=== PATIENT | male | born 1970 | race Caucasian/White ===

== ENCOUNTER → 2018-04-02 | Outpatient (CLI) | payer OTHER ==
[~2018-04-02] MED LIST: ALBIPROI INH; AZIT250 PO; BENTYL20 MG PO; Bactrim Ds Tab1 EACH PO; ESCI10 PO; ESCI20 PO; ESOM20 PO; FAMO20 PO; FAMO40 PO; HYDACE5 PO; HYDMOR4 PO; HYOS.125 SL; KETO10 PO; MARIJUANA; METO10 PO; METR500 PO; OMEP20ER PO; OMEP40CA12 PO; ONDA4 PO; OXYACE5T PO; PANT40 PO; PENVK500 PO; PRED20 PO; PROC10 PO; PROC10ER PO; PROC25S PR; PROM25 PO; PROM25 PR; PROM25S PR; RANI150 PO; RXOXYACE PO; RXPROM25 PO; RXPROM25S PR; RXTRAM50 PO; SERT50 PO; TRAM50 PO; Zofran Odt4 MG PO; [UNRECOGNIZED DRUG - REMARK]
[2018-04-02 12:40] LABS: BASOPHILS ABSOLUTE AUTO 0.05 K/mm3 (0.00-0.23); BASOPHILS PERCENT AUTO 0 % (0-2); EOSINOPHILS PERCENT AUTO 1 % (0-6); Hematocrit 46.4 % (37.0-53.0); Hemoglobin 15.4 g/dL (13.5-17.5); IMMATURE GRAN ABSOLUTE AUTO 0.05 K/mm3 (0.00-0.10); IMMATURE GRAN PERCENT AUTO 0 % (0-1); LYMPHOCYTES ABSOLUTE AUTO 2.87 K/mm3 (0.84-5.20); LYMPHOCYTES PERCENT AUTO 21 % (21-46); MONOCYTES ABSOLUTE AUTO 0.96 K/mm3 (0.16-1.47); MONOCYTES PERCENT AUTO 7 % (4-13); Mean Corpuscular HGB 31.7 pg (26.0-34.0); Mean Corpuscular HGB Conc 33.2 g/dL (31.5-36.5); Mean Corpuscular Volume 96 fL (80-100); Mean Platelet Volume 10.3 fL (9.1-12.4); NEUTROPHILS ABSOLUTE AUTO 9.87 K/mm3 (1.96-9.15); NEUTROPHILS PERCENT AUTO 71 % (41-73); Platelet Count 327 K/mm3 (150-400); RDW Coefficient Variation 13.6 % (11.7-14.2); RDW Standard Deviation 47.9 fL (35.1-46.3); Red Blood Cell Count 4.86 M/mm3 (4.30-5.90)
[2018-04-02 12:50] LABS: Alanine Aminotransfer (ALT/SGP 32 U/L (12-78); Albumin, Blood 4.3 g/dL (3.4-5.0); Albumin/Globulin Ratio 1.2 (0.8-1.8); Alk Phos 75 U/L (40-126); Anion Gap 10 mmol/L (6-16); Aspartate Aminotrans (AST/SGOT 22 U/L (12-37); Bilirubin, Total 0.3 mg/dL (0.1-1.0); Blood Urea Nitrogen 19 mg/dL (8-24); Bun/Creatinine Ratio 16.4 (12.0-20.0); CO2, Blood 26 mmol/L (21-32); Calcium, Blood 8.8 mg/dL (8.5-10.1); Chloride, Blood 103 mmol/L (98-108); Creatinine, Blood 1.16 mg/dL (0.60-1.20); Globulin, Blood 3.5 g/dL (2.2-4.0); Glomerular Filtration Rate >60 (60-); Glucose, Blood 102 mg/dL (70-99); Potassium, Blood 4.3 mmol/L (3.5-5.5); Sodium, Blood 139 mmol/L (136-145); Total Protein, Blood 7.8 g/dL (6.4-8.2)
== END | disposition home or self-care (01) ==
LOC: LAB SHORT 12:35 → LAB EV 12:35
PROVIDERS: Physician Assistant
DX: M79.671 Pain in right foot (principal)
CPT/HCPCS: 80053; 84550; 85025

== ENCOUNTER → 2018-04-09 | Outpatient (CLI) | payer OTHER ==
[2018-04-09 09:57] LABS: BASOPHILS ABSOLUTE AUTO 0.04 K/mm3 (0.00-0.23); BASOPHILS PERCENT AUTO 0 % (0-2); EOSINOPHILS ABSOLUTE AUTO 0.12 K/mm3 (0.00-0.68); EOSINOPHILS PERCENT AUTO 1 % (0-6); Hematocrit 51.6 % (37.0-53.0); Hemoglobin 17.1 g/dL (13.5-17.5); IMMATURE GRAN ABSOLUTE AUTO 0.06 K/mm3 (0.00-0.10); IMMATURE GRAN PERCENT AUTO 1 % (0-1); LYMPHOCYTES ABSOLUTE AUTO 2.86 K/mm3 (0.84-5.20); LYMPHOCYTES PERCENT AUTO 24 % (21-46); MONOCYTES ABSOLUTE AUTO 0.98 K/mm3 (0.16-1.47); MONOCYTES PERCENT AUTO 8 % (4-13); Mean Corpuscular HGB 31.5 pg (26.0-34.0); Mean Corpuscular HGB Conc 33.1 g/dL (31.5-36.5); Mean Corpuscular Volume 95 fL (80-100); NEUTROPHILS ABSOLUTE AUTO 7.98 K/mm3 (1.96-9.15); NEUTROPHILS PERCENT AUTO 66 % (41-73); Platelet Count 358 K/mm3 (150-400); RDW Coefficient Variation 13.7 % (11.7-14.2); RDW Standard Deviation 48.1 fL (35.1-46.3); Red Blood Cell Count 5.42 M/mm3 (4.30-5.90); White Blood Cell Count 12.04 K/mm3 (4.00-11.30)
[2018-04-09 09:58] LABS: Anion Gap 11 mmol/L (6-16); Blood Urea Nitrogen 21 mg/dL (8-24); Bun/Creatinine Ratio 19.8 (12.0-20.0); CO2, Blood 27 mmol/L (21-32); Calcium, Blood 9.5 mg/dL (8.5-10.1); Chloride, Blood 99 mmol/L (98-108); Creatinine, Blood 1.06 mg/dL (0.60-1.20); Glomerular Filtration Rate >60 (60-); Glucose, Blood 89 mg/dL (70-99); Potassium, Blood 4.4 mmol/L (3.5-5.5); Sodium, Blood 137 mmol/L (136-145)
== END ==
LOC: LAB SHORT 09:48 → LAB EV 09:48
PROVIDERS: Nurse Practitioner
DX: R05 Cough (principal)
CPT/HCPCS: 80048; 85025

== ENCOUNTER 2018-08-01 04:24 | Emergency (ER) | payer OTHER ==
[~2018-08-01] VITALS: Ht 182.9 cm; Wt 63.5 kg
[2018-08-01] MEDS ORDERED: COMBIVENT RESPIM4 GM (04:34)
[2018-08-01] MEDS ORDERED: Prednisone20 MG PO (05:02)
== END 2018-08-01 05:32 | disposition home or self-care (01) ==
LOC: ER 04:24
DX: J02.9 Acute pharyngitis, unspecified (principal); Z79.52 Long term (current) use of systemic steroids; Z79.899 Other long term (current) drug therapy; K21.9 Gastro-esophageal reflux disease without esophagitis; F17.210 Nicotine dependence, cigarettes, uncomplicated; Z90.49 Acquired absence of other specified parts of digestive tract
CPT/HCPCS: 71046; 87081; 87430; 96372; 99284-25; J1885

== ENCOUNTER 2018-08-16 07:00 | Emergency (ER) | payer OTHER ==
[~2018-08-16] VITALS: Ht 182.9 cm; Wt 60.3 kg
[~2018-08-16 07:00] MED LIST changes: +COMBIVENT RESPIM4 GM; +Prednisone20 MG PO
[2018-08-16] MEDS ORDERED: COMBIVENT RESPIM4 GM INH (08:22)
[2018-08-16] MEDS ORDERED: Prednisone20 MG PO (08:22)
[2018-08-16] MEDS ORDERED: BENZ100A PO (08:22)
[2018-08-16] MEDS ORDERED: Zithromax250 MG PO (08:22)
== END 2018-08-16 08:50 | disposition home or self-care (01) ==
LOC: ER 07:00
DX: J44.1 Chronic obstructive pulmonary disease with (acute) exacerbation (principal); F17.210 Nicotine dependence, cigarettes, uncomplicated
CPT/HCPCS: 71046; 94640; 99284-25

== ENCOUNTER 2019-03-18 11:18 | Observation (INO) | payer OTHER ==
[~2019-03-18] VITALS: Ht 182.9 cm; Wt 63.5 kg
[~2019-03-18 11:18] MED LIST changes: +BENZ100A PO; +COMBIVENT RESPIM4 GM INH; +Zithromax250 MG PO
[2019-03-18 11:49] LABS: BASOPHILS ABSOLUTE AUTO 0.03 K/mm3 (0.00-0.23); BASOPHILS PERCENT AUTO 0 % (0-2); EOSINOPHILS ABSOLUTE AUTO 0.01 K/mm3 (0.00-0.68); EOSINOPHILS PERCENT AUTO 0 % (0-6); Hematocrit 44.7 % (37.0-53.0); Hemoglobin 15.1 g/dL (13.5-17.5); IMMATURE GRAN ABSOLUTE AUTO 0.07 K/mm3 (0.00-0.10); IMMATURE GRAN PERCENT AUTO 1 % (0-1); LYMPHOCYTES ABSOLUTE AUTO 1.44 K/mm3 (0.84-5.20); LYMPHOCYTES PERCENT AUTO 10 % (21-46); MONOCYTES ABSOLUTE AUTO 0.63 K/mm3 (0.16-1.47); MONOCYTES PERCENT AUTO 5 % (4-13); Mean Corpuscular HGB 31.7 pg (26.0-34.0); Mean Corpuscular HGB Conc 33.8 g/dL (31.5-36.5); Mean Corpuscular Volume 94 fL (80-100); Mean Platelet Volume 9.3 fL (9.1-12.4); NEUTROPHILS ABSOLUTE AUTO 11.72 K/mm3 (1.96-9.15); NEUTROPHILS PERCENT AUTO 84 % (41-73); Platelet Count 334 K/mm3 (150-400); RDW Standard Deviation 48.4 fL (35.1-46.3); Red Blood Cell Count 4.77 M/mm3 (4.30-5.90)
[2019-03-18 12:06] LABS: Alanine Aminotransfer (ALT/SGP 23 U/L (12-78); Albumin, Blood 3.8 g/dL (3.4-5.0); Albumin/Globulin Ratio 1.2 (0.8-1.8); Alk Phos 63 U/L (50-136); Anion Gap 7 mmol/L (6-16); Aspartate Aminotrans (AST/SGOT 13 U/L (12-37); Bilirubin, Total 0.5 mg/dL (0.1-1.0); Blood Urea Nitrogen 21 mg/dL (8-24); Bun/Creatinine Ratio 23.5 (12.0-20.0); CO2, Blood 24 mmol/L (21-32); Calcium, Blood 8.9 mg/dL (8.5-10.1); Chloride, Blood 108 mmol/L (98-108); Creatinine, Blood 0.89 mg/dL (0.60-1.20); Globulin, Blood 3.3 g/dL (2.2-4.0); Glomerular Filtration Rate >60 (60-); Glucose, Blood 119 mg/dL (70-99); Potassium, Blood 4.5 mmol/L (3.5-5.5); Sodium, Blood 139 mmol/L (136-145); Total Protein, Blood 7.1 g/dL (6.4-8.2)
[2019-03-18 14:04] LABS: Source, Urine Voided
[2019-03-18 14:14] LABS: Bilirubin, Urine Neg (Neg); Blood, Urine 1+ (Neg); Glucose Qualitative, Urine Neg (Neg); Ketones, Urine 2+ (Neg); Leukocyte Esterase, Urine Neg (Neg); Nitrite, Urine Neg (Neg); Protein, Urine 1+ (Neg); Urobilinogen, Urine NORM (Normal); pH, Urine 6.5 (5.0-8.0)
[2019-03-18 14:25] LABS: U Amphetamine Screen Not Detected; U Barbituate Screen Not Detected; U Benzodiazapine Screen Not Detected; U Buprenorphine Screen Not Detected; U Cannabinoids Screen DETECTED; U Cocaine Screen Not Detected; U Methadone Screen Not Detected; U Methamphetamine Screen Not Detected; U Opiates Screen Not Detected; U Oxycodone Screen Not Detected; U Phencyclidine Screen Not Detected; U Propoxyphene Screen Not Detected
[2019-03-18 14:29] LABS: Appearance, Urine Clear (Clear); Color, Urine Yellow (P-Yellow)
[2019-03-18 14:46] LABS: Bacteria Rare /hpf; Red Blood Cells, Urine 0-2 /hpf (0-2); Squamous Epithelial Cells Rare /hpf (Few); White Blood Cells, Urine 0-2 /hpf (0-5)
[2019-03-18] MEDS ORDERED: Ventolin/Prove6.7 GM INH (16:26)
--- NOTE | 2019-03-18 18:43 | NUR ---
PT PLEASANT SINCE ADMIT AT 1730. STAATES IS HOMELESS. PRESENTS WEAK AND MALNOURISHED. 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 NOT WORKING NOW. STATES IS MARIJUANNA USER AND TOBACCO USER. STATES RECEIVES NO ASSISTANCE. SLEEPING MUCH SINCE ARRIVAL. IS [place]. BED IN LOW POSITIOIN, CALL LITE IN REACH, CALLS APPROP
--- NOTE | 2019-03-18 18:50 | NUR ---
DR NOTIFIED B/P 160'S, H/R 48. NO NEW ORDERS
[2019-03-19 05:01] LABS: BASOPHILS ABSOLUTE AUTO 0.03 K/mm3 (0.00-0.23); BASOPHILS PERCENT AUTO 0 % (0-2); EOSINOPHILS PERCENT AUTO 0 % (0-6); Hematocrit 44.9 % (37.0-53.0); Hemoglobin 14.5 g/dL (13.5-17.5); IMMATURE GRAN ABSOLUTE AUTO 0.08 K/mm3 (0.00-0.10); IMMATURE GRAN PERCENT AUTO 0 % (0-1); LYMPHOCYTES ABSOLUTE AUTO 1.79 K/mm3 (0.84-5.20); LYMPHOCYTES PERCENT AUTO 9 % (21-46); MONOCYTES ABSOLUTE AUTO 1.59 K/mm3 (0.16-1.47); MONOCYTES PERCENT AUTO 8 % (4-13); Mean Corpuscular HGB 30.5 pg (26.0-34.0); Mean Corpuscular HGB Conc 32.3 g/dL (31.5-36.5); Mean Corpuscular Volume 95 fL (80-100); Mean Platelet Volume 10.2 fL (9.1-12.4); NEUTROPHILS ABSOLUTE AUTO 16.34 K/mm3 (1.96-9.15); NEUTROPHILS PERCENT AUTO 82 % (41-73); Platelet Count 307 K/mm3 (150-400); RDW Coefficient Variation 14.2 % (11.7-14.2); RDW Standard Deviation 49.7 fL (35.1-46.3); Red Blood Cell Count 4.75 M/mm3 (4.30-5.90); White Blood Cell Count 19.83 K/mm3 (4.00-11.30)
[2019-03-19 05:53] LABS: Alanine Aminotransfer (ALT/SGP 23 U/L (12-78); Albumin/Globulin Ratio 1.1 (0.8-1.8); Alk Phos 61 U/L (50-136); Anion Gap 8 mmol/L (6-16); Aspartate Aminotrans (AST/SGOT 15 U/L (12-37); Bilirubin, Total 0.7 mg/dL (0.1-1.0); Blood Urea Nitrogen 19 mg/dL (8-24); Bun/Creatinine Ratio 22.1 (12.0-20.0); CO2, Blood 26 mmol/L (21-32); Calcium, Blood 8.8 mg/dL (8.5-10.1); Chloride, Blood 103 mmol/L (98-108); Creatinine, Blood 0.86 mg/dL (0.60-1.20); Globulin, Blood 3.5 g/dL (2.2-4.0); Glomerular Filtration Rate >60 (60-); Glucose, Blood 114 mg/dL (70-99); Potassium, Blood 4.2 mmol/L (3.5-5.5); Sodium, Blood 137 mmol/L (136-145); Total Protein, Blood 7.5 g/dL (6.4-8.2)
--- NOTE | 2019-03-19 06:51 | NUR ---
49 year old MAle appears olderthan actual age. PT co nausea, abd cramps and acute abd pain x 1 . Medicated with toradol, compazine, bentyl with helpful effect. In IV fluid, NPO. Very [place] but able to communicate.
[2019-03-19] MEDS ORDERED: Nicoderm Cq1 EAC1 TOP (11:46)
[2019-03-19] MEDS ORDERED: COMPAZINE10 MG PO (11:47)
--- NOTE | 2019-03-19 12:34 | NUR ---
DISCHARGE DISCHARGE MEDICATIONS AND INSTRUCTIONS EXLAINED TO PATIENT. PATIENT STATED UNDERSTANDING. FOLLOW UP APPOINTMENT TO BE MADE BY CARE MANAGEMENT, PATIENT TO BE CALLED AT HOME. IV REMOVED WITHOUT DIFFICULTY. BELONGINGS WITH PATIENT. PATIENT TRANSFERED TO [facility] VIA WHEELCHAIR.
[2019-03-20 08:06] LABS: COMPLEMENT C3, SERUM 87 mg/dL (82-167); COMPLEMENT C4, SERUM 23 mg/dL (14-44)
[2019-03-23 13:07] LABS: ANTI-DSDNA ANTIBODIES 2 IU/mL (0-9); RNP ANTIBODIES <0.2 AI (0.0-0.9); SJOGREN'S ANTI-SS-A <0.2 AI (0.0-0.9); SJOGREN'S ANTI-SS-B <0.2 AI (0.0-0.9); SMITH ANTIBODIES <0.2 AI (0.0-0.9)
== END 2019-03-19 12:33 | disposition home or self-care (01) ==
LOC: ER 11:18 → MEDS 11:19 → ENPENDDIS 03-19 10:58 → MEDS 03-19 12:33
PROVIDERS: Emergency Medicine; ADMIT Internal Medicine
DX: F12.988 Cannabis use, unspecified with other cannabis-induced disorder (principal); F12.10 Cannabis abuse, uncomplicated; F17.210 Nicotine dependence, cigarettes, uncomplicated; E43 Unspecified severe protein-calorie malnutrition; J44.9 Chronic obstructive pulmonary disease, unspecified; K00.7 Teething syndrome; K21.9 Gastro-esophageal reflux disease without esophagitis
CPT/HCPCS: 36415; 71046; 74018; 74177; 80053; 81001; 83690; 84443; 85025; 85651; 86160; 86225; 86235; 93005; 93010; 94640; 94760; 96361; 96372; 96374-59; 96376; 99285-25; G0378; J0780; J1650; J1885; J7120; Q9967

== ENCOUNTER 2019-03-20 09:35 | Emergency (ER) | payer OTHER ==
[~2019-03-20] VITALS: Ht 182.9 cm; Wt 61.2 kg
[~2019-03-20 09:35] MED LIST changes: +COMPAZINE10 MG PO; +Nicoderm Cq1 EAC1 TOP; +Ventolin/Prove6.7 GM INH
[2019-03-20 10:45] LABS: Calcium, Ionized (POC) 1.04 mmol/L (1.10-1.46); Chloride (POC) 104 mmol/L (98-108); Creatinine (POC) 0.9 mg/dL (0.8-1.3); Glucose (ISTAT POC) 112 mg/dL (70-99); Hemoglobin (POC) 14.3 g/dL (13.5-17.5); Potassium (POC) 3.8 mmol/L (3.5-5.5); Sodium (POC) 137 mmol/L (135-148); Total CO2 (POC) 25 mmol/L (21-32)
== END 2019-03-20 11:07 | disposition home or self-care (01) ==
LOC: ER 09:35
PROVIDERS: Emergency Medicine
DX: R10.9 Unspecified abdominal pain (principal); F17.210 Nicotine dependence, cigarettes, uncomplicated; Z79.899 Other long term (current) drug therapy
CPT/HCPCS: 36415; 80047; 85014; 96374; 99283-25; J0780

== ENCOUNTER 2020-07-15 19:50 | Emergency (ER) | payer OTHER ==
[~2020-07-15] VITALS: Ht 180.3 cm; Wt 65.8 kg
[2020-07-15] MEDS ORDERED: CEPH500 PO (21:32)
== END 2020-07-15 21:55 | disposition home or self-care (01) ==
LOC: ER 19:50
DX: L02.416 Cutaneous abscess of left lower limb (principal); L03.116 Cellulitis of left lower limb; S80.02XA Contusion of left knee, initial encounter; F17.210 Nicotine dependence, cigarettes, uncomplicated; V19.9XXA Pedal cyclist (driver) (passenger) injured in unspecified traffic accident, initial encounter
CPT/HCPCS: 10160; 96372-59; 99283-25; J1885

== ENCOUNTER 2020-08-12 01:41 | Emergency (ER) | payer OTHER ==
[~2020-08-12] VITALS: Ht 182.9 cm; Wt 65.8 kg
[~2020-08-12 01:41] MED LIST changes: +CEPH500 PO
[2020-08-12] MEDS ORDERED: Cleocin HCl300 MG PO (01:50)
== END 2020-08-12 01:59 | disposition home or self-care (01) ==
LOC: ER 01:41
DX: L03.012 Cellulitis of left finger (principal); F17.200 Nicotine dependence, unspecified, uncomplicated
CPT/HCPCS: 99282; A9270

== ENCOUNTER 2020-09-05 20:57 | Inpatient (IN) | payer OTHER ==
[~2020-09-05] VITALS: Ht 182.9 cm; Wt 61.5 kg
[~2020-09-05 20:57] MED LIST changes: +Cleocin HCl300 MG PO
[2020-09-05 22:12] LABS: BASOPHILS ABSOLUTE AUTO 0.07 K/mm3 (0.00-0.23); BASOPHILS PERCENT AUTO 0 % (0-2); EOSINOPHILS ABSOLUTE AUTO 0.09 K/mm3 (0.00-0.68); EOSINOPHILS PERCENT AUTO 0 % (0-6); Hematocrit 35.2 % (37.0-53.0); Hemoglobin 11.2 g/dL (13.5-17.5); IMMATURE GRAN ABSOLUTE AUTO 0.16 K/mm3 (0.00-0.10); IMMATURE GRAN PERCENT AUTO 1 % (0-1); LYMPHOCYTES ABSOLUTE AUTO 1.76 K/mm3 (0.84-5.20); LYMPHOCYTES PERCENT AUTO 7 % (21-46); MONOCYTES ABSOLUTE AUTO 2.38 K/mm3 (0.16-1.47); MONOCYTES PERCENT AUTO 10 % (4-13); Mean Corpuscular HGB 30.1 pg (26.0-34.0); Mean Corpuscular HGB Conc 31.8 g/dL (31.5-36.5); Mean Corpuscular Volume 95 fL (80-100); Mean Platelet Volume 9.5 fL (9.1-12.4); NEUTROPHILS ABSOLUTE AUTO 19.44 K/mm3 (1.96-9.15); NEUTROPHILS PERCENT AUTO 81 % (41-73); Platelet Count 375 K/mm3 (150-400); RDW Coefficient Variation 13.8 % (11.7-14.2); RDW Standard Deviation 47.8 fL (35.1-46.3); Red Blood Cell Count 3.72 M/mm3 (4.30-5.90)
[2020-09-05 23:04] LABS: Alanine Aminotransfer (ALT/SGP 33 U/L (12-78); Albumin, Blood 2.9 g/dL (3.4-5.0); Albumin/Globulin Ratio 0.8 (0.8-1.8); Alk Phos 122 U/L (50-136); Anion Gap 8 mmol/L (6-16); Aspartate Aminotrans (AST/SGOT 33 U/L (12-37); Bilirubin, Total 0.3 mg/dL (0.1-1.0); Blood Urea Nitrogen 28 mg/dL (8-24); Bun/Creatinine Ratio 27.2 (12.0-20.0); CO2, Blood 24 mmol/L (21-32); Calcium, Blood 8.1 mg/dL (8.5-10.1); Chloride, Blood 105 mmol/L (98-108); Creatinine, Blood 1.03 mg/dL (0.60-1.20); Globulin, Blood 3.7 g/dL (2.2-4.0); Glomerular Filtration Rate >60 (60-); Glucose, Blood 126 mg/dL (70-99); Potassium, Blood 4.3 mmol/L (3.5-5.5); Sodium, Blood 137 mmol/L (136-145); Total Protein, Blood 6.6 g/dL (6.4-8.2)
[2020-09-06 01:06] LABS: Influenza A, PCR NEGATIVE (NEGATIVE); Influenza B, PCR NEGATIVE (NEGATIVE); Resp Syncytial Virus, PCR NEGATIVE (NEGATIVE); SARS-Cov-2 (COVID-19) PCR, MMC NEGATIVE (NEGATIVE)
--- NOTE | 2020-09-06 06:52 | NUR ---
SHIFT SUMMARY PT WAS A NEW ADMIT DURING THE NIGHT, ARRIVING ON THE FLOOR AT 0150. PT WAS VERY LETHARGIC AND CONFUSED ON ADMIT, ABLE TO ANSWER YES OR NO QUESTIONS OR MOANING BUT VERY QUICKLY FALLING BACK ASLEEP. THE BED ALARM WAS TURNED ON AFTER PT PULLED OUT HIS IV GOING TO THE BATHROOM. PT RECEIVING LR @ 125 ML/HR. HE WAS MEDICATED FOR A MILD FEVER AT 100.3 WITH PRN TYLENOL. NO C/O PAIN, NAUSEA OR SOB. VITAL SIGNS STABLE. NO OTHER ACUTE CHANGES IN PT CONDITION NOTED. WILL CONTINUE TO MONITOR AND TREAT PER EMAR UNTIL HAND OFF TO DAY SHIFT RN.
[2020-09-06 07:50] LABS: BASOPHILS ABSOLUTE AUTO 0.06 K/mm3 (0.00-0.23); BASOPHILS PERCENT AUTO 0 % (0-2); EOSINOPHILS ABSOLUTE AUTO 0.22 K/mm3 (0.00-0.68); EOSINOPHILS PERCENT AUTO 1 % (0-6); Hematocrit 37.6 % (37.0-53.0); Hemoglobin 11.9 g/dL (13.5-17.5); IMMATURE GRAN PERCENT AUTO 1 % (0-1); LYMPHOCYTES PERCENT AUTO 11 % (21-46); MONOCYTES ABSOLUTE AUTO 1.68 K/mm3 (0.16-1.47); MONOCYTES PERCENT AUTO 9 % (4-13); Mean Corpuscular HGB Conc 31.6 g/dL (31.5-36.5); Mean Corpuscular Volume 95 fL (80-100); Mean Platelet Volume 9.3 fL (9.1-12.4); NEUTROPHILS ABSOLUTE AUTO 15.17 K/mm3 (1.96-9.15); NEUTROPHILS PERCENT AUTO 79 % (41-73); Platelet Count 387 K/mm3 (150-400); RDW Coefficient Variation 13.7 % (11.7-14.2); RDW Standard Deviation 47.8 fL (35.1-46.3); Red Blood Cell Count 3.97 M/mm3 (4.30-5.90); White Blood Cell Count 19.33 K/mm3 (4.00-11.30)
[2020-09-06 08:03] LABS: Anion Gap 3 mmol/L (6-16); Blood Urea Nitrogen 18 mg/dL (8-24); Bun/Creatinine Ratio 19.9 (12.0-20.0); CO2, Blood 30 mmol/L (21-32); Calcium, Blood 8.5 mg/dL (8.5-10.1); Chloride, Blood 105 mmol/L (98-108); Creatinine, Blood 0.91 mg/dL (0.60-1.20); Glomerular Filtration Rate >60 (60-); Glucose, Blood 95 mg/dL (70-99); Sodium, Blood 138 mmol/L (136-145)
--- NOTE | 2020-09-06 17:37 | NUR ---
SHIFT SUMMARY PATIENT ALERT AND ORIENTED, DROWSY THROUGHOUT THIS SHIFT. PATIENT SLEPT THROUGH MOST OF THIS SHIFT. PATIENT WAKES AND URGENTLY NEEDS TO URINATE. PATIENT FORGETFUL OF IV POLE. PATIENT REMINDED TO TAKE CARE WITH IV POLE. PATIENT ON ANTIBIOTICS, SURGICAL CONSULT TO REASSESS INFECTED FINGER TOMORROW AFTER IV ANTIBIOTICS HAVE BEEN ADMINISTERED. PATIENT CURRENTLY SITTING UP IN BED SLEEPING.
[2020-09-06 23:20] LABS: U Amphetamine Screen DETECTED; U Barbituate Screen Not Detected; U Benzodiazapine Screen Not Detected; U Buprenorphine Screen Not Detected; U Cannabinoids Screen DETECTED; U Cocaine Screen Not Detected; U Methadone Screen Not Detected; U Methamphetamine Screen DETECTED; U Opiates Screen Not Detected; U Oxycodone Screen Not Detected; U Phencyclidine Screen Not Detected; U Propoxyphene Screen Not Detected
--- NOTE | 2020-09-07 06:14 | NUR ---
SHIFT SUMMARY PT IS A 50 Y/O MALE, ADMITTED FOR SEPSIS R/T L INDEX FINGER INFECTION. 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 PT HAS BEEN NPO SINCE MIDNIGHT IN PREP FOR POSSIBLE SURGICAL PROCEDURE ON L FINGER. PT SLEPT THROUGH THE NIGHT, NO C/O PAIN, NAUSEA OR SOB. VITAL SIGNS STABLE. PT RECEIVED LR @ 125 ML/HR. U-TOX COMPLETED, POSITIVE FOR METH/AMPHETIMINES AND MARIJUANA. NO ACUTE CHANGES IN PT CONDITION NOTED. WILL CONTINUE TO MONITOR AND TREAT PER EMAR UNTIL HAND OFF TO DAY SHIFT RN.
[2020-09-07 09:11] LABS: BASOPHILS ABSOLUTE AUTO 0.09 K/mm3 (0.00-0.23); BASOPHILS PERCENT AUTO 1 % (0-2); EOSINOPHILS ABSOLUTE AUTO 0.29 K/mm3 (0.00-0.68); EOSINOPHILS PERCENT AUTO 2 % (0-6); Hematocrit 46.1 % (37.0-53.0); IMMATURE GRAN ABSOLUTE AUTO 0.08 K/mm3 (0.00-0.10); IMMATURE GRAN PERCENT AUTO 1 % (0-1); LYMPHOCYTES ABSOLUTE AUTO 1.58 K/mm3 (0.84-5.20); LYMPHOCYTES PERCENT AUTO 11 % (21-46); MONOCYTES ABSOLUTE AUTO 0.98 K/mm3 (0.16-1.47); MONOCYTES PERCENT AUTO 7 % (4-13); Mean Corpuscular HGB 30.4 pg (26.0-34.0); Mean Corpuscular HGB Conc 32.5 g/dL (31.5-36.5); Mean Corpuscular Volume 94 fL (80-100); Mean Platelet Volume 9.6 fL (9.1-12.4); NEUTROPHILS ABSOLUTE AUTO 12.07 K/mm3 (1.96-9.15); NEUTROPHILS PERCENT AUTO 80 % (41-73); Platelet Count 470 K/mm3 (150-400); RDW Coefficient Variation 13.5 % (11.7-14.2); RDW Standard Deviation 45.9 fL (35.1-46.3); Red Blood Cell Count 4.93 M/mm3 (4.30-5.90); White Blood Cell Count 15.09 K/mm3 (4.00-11.30)
[2020-09-07 10:03] LABS: Anion Gap 8 mmol/L (6-16); Blood Urea Nitrogen 19 mg/dL (8-24); Bun/Creatinine Ratio 22.5 (12.0-20.0); CO2, Blood 26 mmol/L (21-32); Calcium, Blood 9.1 mg/dL (8.5-10.1); Chloride, Blood 103 mmol/L (98-108); Creatinine, Blood 0.84 mg/dL (0.60-1.20); Glomerular Filtration Rate >60 (60-); Glucose, Blood 82 mg/dL (70-99); Sodium, Blood 137 mmol/L (136-145)
[2020-09-07 10:08] LABS: Vancomycin, Trough 14.1 ug/mL (5.0-10.0)
--- NOTE | 2020-09-07 23:22 | NUR ---
CALLED HOSPITALIST PT HANDED HIS ROOM PHONE TO ME. PT'S FATHER REQUESTED I GIVE HIS SON A PILL TO HELP HIM SLEEP. PT VERIFIED TO ME THAT HE FELT THAT WOULD HELP. PT GIVEN A HEATING PAD FOR HIS SHOULDER WELL
--- NOTE | 2020-09-07 23:25 | NUR ---
CALLED HOSPITALIST PT'S IV INFILTRATED. PT WAS STUCK 11 TIMES ON PREVIOUS SHIFT IN AN ATTEMPT TO GET THAT IV. PT REFUSING NEW IV THIS SHIFT. HOSPITALIST INFORMED OF PT REFUSAL.
--- NOTE | 2020-09-08 03:55 | NUR ---
SHIFT SUMMARY ADMITTED FOR SEPSIS/INFECTED TIP OF LEFT INDEX FINGER. FULL CODE. IV ANTIBIOTICS ARE SCHEDULED. PT'S IV INFILTRATED THIS SHIFT. HE DID REFUSE A NEW IV "UNTIL MORNING" HE WAS POKED 11 TIMES ON PREVIOUS SHIFT. I DID INFORM THE HOSPITALIST. PT NOTED TO BE TALKING TO HIMSELF AND GROANING IN ROOM. WHEN ASKED ABOUT THIS, HE HAD NO REQUESTS FOR ASSISTANCE.
[2020-09-08 07:05] LABS: BASOPHILS ABSOLUTE AUTO 0.06 K/mm3 (0.00-0.23); BASOPHILS PERCENT AUTO 1 % (0-2); EOSINOPHILS ABSOLUTE AUTO 0.28 K/mm3 (0.00-0.68); EOSINOPHILS PERCENT AUTO 2 % (0-6); Hematocrit 51.8 % (37.0-53.0); IMMATURE GRAN PERCENT AUTO 1 % (0-1); LYMPHOCYTES ABSOLUTE AUTO 2.12 K/mm3 (0.84-5.20); LYMPHOCYTES PERCENT AUTO 18 % (21-46); MONOCYTES ABSOLUTE AUTO 0.86 K/mm3 (0.16-1.47); MONOCYTES PERCENT AUTO 7 % (4-13); Mean Corpuscular HGB 29.8 pg (26.0-34.0); Mean Corpuscular HGB Conc 32.8 g/dL (31.5-36.5); Mean Corpuscular Volume 91 fL (80-100); Mean Platelet Volume 10.1 fL (9.1-12.4); NEUTROPHILS ABSOLUTE AUTO 8.41 K/mm3 (1.96-9.15); NEUTROPHILS PERCENT AUTO 71 % (41-73); Platelet Count 420 K/mm3 (150-400); RDW Coefficient Variation 13.4 % (11.7-14.2); RDW Standard Deviation 45.4 fL (35.1-46.3); Red Blood Cell Count 5.71 M/mm3 (4.30-5.90); White Blood Cell Count 11.83 K/mm3 (4.00-11.30)
[2020-09-08 07:17] LABS: Anion Gap 8 mmol/L (6-16); Blood Urea Nitrogen 24 mg/dL (8-24); Bun/Creatinine Ratio 23.5 (12.0-20.0); CO2, Blood 27 mmol/L (21-32); Chloride, Blood 103 mmol/L (98-108); Creatinine, Blood 1.02 mg/dL (0.60-1.20); Glomerular Filtration Rate >60 (60-); Glucose, Blood 90 mg/dL (70-99); Potassium, Blood 4.5 mmol/L (3.5-5.5); Sodium, Blood 138 mmol/L (136-145)
[2020-09-08] MEDS ORDERED: SULTRIDS PO (11:03)
[2020-09-08] MEDS ORDERED: VISBIOME 112.51 EACH PO (11:04)
[2020-09-08] MEDS ORDERED: LISI10 PO (11:04)
--- NOTE | 2020-09-08 12:45 | NUR ---
PT AWAKE DURING SHIFT REPORT, SITTING UP IN BED. PER REPORT, PT HAS NO IV ACCESS AND REFUSED TO ALLOW ANY MORE ATTEMPTS. DISCUSSED IV ACCESS WITH PT, BUT REFUSES ANY MORE. NOTIFIED METALWORKING SPECIALIST AND LATER DR BARTLETT. PT TO BE D/C'D ON PO ABX. DR MERCEDES IN TO SEE PT. DISCUSSED D/C INSTRUCTIONS WITH PT; VERBALIZED UNDERSTANDING. [facility] PT [facility]. D/C INSTRUCTIONS AGAIN DISCUSSED WITH PT AND CARE OF INDEX FINGER WOUND. PT VERBALIZED UNDERSTANDING. DENIED FURTHER NEEDS. TAXI PROVIDED FOR PT TO GET TO [employer] TO P/U BELONGINGS. PT ASSISTED OUT VIA W/C TO MEET TAXI.
== END 2020-09-08 11:38 | disposition home or self-care (01) | DRG 872 ==
LOC: ER 20:57 → MEDS 09-06 01:32
PROVIDERS: Emergency Medicine; Family Medicine; Physician Assistant; ADMIT Internal Medicine
PROC: 3E0234Z Introduction of Serum, Toxoid and Vaccine into Muscle, Percutaneous Approach (ICD-10-PCS; principal; 2020-09-06)
DX: A41.9 Sepsis, unspecified organism (principal); L02.512 Cutaneous abscess of left hand; I10 Essential (primary) hypertension; Z20.822 Contact with and (suspected) exposure to COVID-19; Z23 Encounter for immunization; K21.9 Gastro-esophageal reflux disease without esophagitis; J44.9 Chronic obstructive pulmonary disease, unspecified; F17.210 Nicotine dependence, cigarettes, uncomplicated; Z59.0 Homelessness; Z85.118 Personal history of other malignant neoplasm of bronchus and lung
CPT/HCPCS: 0241U; 36415; 73140; 73201; 80048; 80053; 80202; 83605; 85025; 85651; 87040; 96365-59; 96367; 96375-59; 99285-25; A9270; J0295; J0360; J0692; J0696; J1650; J2405; J3010; J3370; J7120; Q2038; Q9967

== ENCOUNTER 2020-11-24 18:02 | Emergency (ER) | payer OTHER ==
[~2020-11-24] VITALS: Ht 182.9 cm; Wt 65.8 kg
[~2020-11-24 18:02] MED LIST changes: +LISI10 PO; +SULTRIDS PO; +VISBIOME 112.51 EACH PO
[2020-11-24] MEDS ORDERED: HYDR1TAB94 PO (19:17)
== END 2020-11-24 19:01 | disposition home or self-care (01) ==
LOC: ER 18:02
DX: S42.001A Fracture of unspecified part of right clavicle, initial encounter for closed fracture (principal); K21.9 Gastro-esophageal reflux disease without esophagitis; J44.9 Chronic obstructive pulmonary disease, unspecified; Z79.899 Other long term (current) drug therapy; V19.9XXA Pedal cyclist (driver) (passenger) injured in unspecified traffic accident, initial encounter
CPT/HCPCS: 71046; 73030; 99283-25; A9270

== ENCOUNTER 2020-11-25 06:58 | Emergency (ER) | payer OTHER ==
[~2020-11-25] VITALS: Ht 182.9 cm; Wt 77.1 kg
[~2020-11-25 06:58] MED LIST changes: +HYDR1TAB94 PO
== END 2020-11-25 07:37 | disposition home or self-care (01) ==
LOC: ER 06:58
DX: S42.002A Fracture of unspecified part of left clavicle, initial encounter for closed fracture (principal); F17.210 Nicotine dependence, cigarettes, uncomplicated; K21.9 Gastro-esophageal reflux disease without esophagitis; Z79.899 Other long term (current) drug therapy; V19.9XXA Pedal cyclist (driver) (passenger) injured in unspecified traffic accident, initial encounter
CPT/HCPCS: 99283

== ENCOUNTER 2021-01-04 13:57 | Emergency (ER) | payer OTHER ==
[~2021-01-04] VITALS: Ht 182.9 cm; Wt 63.5 kg
[2021-01-04 14:30] LABS: BASOPHILS ABSOLUTE AUTO 0.05 K/mm3 (0.00-0.23); BASOPHILS PERCENT AUTO 0 % (0-2); EOSINOPHILS ABSOLUTE AUTO 0.04 K/mm3 (0.00-0.68); EOSINOPHILS PERCENT AUTO 0 % (0-6); Hematocrit 48.5 % (37.0-53.0); IMMATURE GRAN ABSOLUTE AUTO 0.08 K/mm3 (0.00-0.10); IMMATURE GRAN PERCENT AUTO 1 % (0-1); LYMPHOCYTES PERCENT AUTO 8 % (21-46); MONOCYTES ABSOLUTE AUTO 1.24 K/mm3 (0.16-1.47); MONOCYTES PERCENT AUTO 7 % (4-13); Mean Corpuscular HGB 30.5 pg (26.0-34.0); Mean Corpuscular Volume 93 fL (80-100); NEUTROPHILS ABSOLUTE AUTO 14.62 K/mm3 (1.96-9.15); NEUTROPHILS PERCENT AUTO 84 % (41-73); RDW Coefficient Variation 13.3 % (11.7-14.2); RDW Standard Deviation 45.9 fL (35.1-46.3); Red Blood Cell Count 5.24 M/mm3 (4.30-5.90); White Blood Cell Count 17.43 K/mm3 (4.00-11.30)
[2021-01-04 14:35] LABS: Mean Platelet Volume 9.9 fL (9.1-12.4); Platelet Count 392 K/mm3 (150-400)
[2021-01-04 14:53] LABS: Albumin, Blood 3.9 g/dL (3.4-5.0); Bilirubin, Total 0.4 mg/dL (0.1-1.0); Bun/Creatinine Ratio 17.1 (12.0-20.0); Calcium, Blood 9.5 mg/dL (8.5-10.1); Creatinine, Blood 2.22 mg/dL (0.60-1.20); Potassium, Blood 4.7 mmol/L (3.5-5.5); Total Protein, Blood 7.9 g/dL (6.4-8.2)
== END 2021-01-04 18:49 | disposition left against medical advice (07) ==
LOC: ER 13:57
PROVIDERS: Physician Assistant
DX: R10.10 Upper abdominal pain, unspecified (principal); Z53.21 Procedure and treatment not carried out due to patient leaving prior to being seen by health care provider
CPT/HCPCS: 36415; 80053; 83690; 85025; 93005; 93010; 99283-25

== ENCOUNTER 2021-06-14 23:18 | Emergency (ER) | payer OTHER ==
[~2021-06-14] VITALS: Ht 182.9 cm; Wt 65.8 kg
== END 2021-06-15 00:25 | disposition home or self-care (01) ==
LOC: ER 23:18
DX: R68.83 Chills (without fever) (principal); Z59.00 Homelessness unspecified; F17.210 Nicotine dependence, cigarettes, uncomplicated
CPT/HCPCS: 99283

== ENCOUNTER 2021-06-28 10:46 | Emergency (ER) | payer OTHER ==
[~2021-06-28] VITALS: Ht 182.9 cm; Wt 63.5 kg
[2021-06-28 12:45] LABS: BASOPHILS ABSOLUTE AUTO 0.07 K/mm3 (0.00-0.23); BASOPHILS PERCENT AUTO 0 % (0-2); EOSINOPHILS ABSOLUTE AUTO 0.21 K/mm3 (0.00-0.68); EOSINOPHILS PERCENT AUTO 1 % (0-6); Hematocrit 44.7 % (37.0-53.0); Hemoglobin 14.2 g/dL (13.5-17.5); IMMATURE GRAN ABSOLUTE AUTO 0.16 K/mm3 (0.00-0.10); IMMATURE GRAN PERCENT AUTO 1 % (0-1); LYMPHOCYTES PERCENT AUTO 11 % (21-46); MONOCYTES ABSOLUTE AUTO 1.41 K/mm3 (0.16-1.47); MONOCYTES PERCENT AUTO 7 % (4-13); Mean Corpuscular HGB 30.1 pg (26.0-34.0); Mean Corpuscular HGB Conc 31.8 g/dL (31.5-36.5); Mean Corpuscular Volume 95 fL (80-100); Mean Platelet Volume 9.5 fL (9.1-12.4); NEUTROPHILS ABSOLUTE AUTO 15.63 K/mm3 (1.96-9.15); NEUTROPHILS PERCENT AUTO 80 % (41-73); Platelet Count 442 K/mm3 (150-400); RDW Coefficient Variation 13.6 % (11.7-14.2); RDW Standard Deviation 48.1 fL (35.1-46.3); Red Blood Cell Count 4.72 M/mm3 (4.30-5.90); White Blood Cell Count 19.58 K/mm3 (4.00-11.30)
[2021-06-28 13:19] LABS: Acetaminophen, Random <2.0 ug/mL (10.0-30.0); Alanine Aminotransfer (ALT/SGP 59 U/L (12-78); Albumin, Blood 3.5 g/dL (3.4-5.0); Alk Phos 115 U/L (50-136); Anion Gap 9 mmol/L (6-16); Aspartate Aminotrans (AST/SGOT 38 U/L (12-37); Bilirubin, Total 0.6 mg/dL (0.1-1.0); Blood Urea Nitrogen 24 mg/dL (8-24); Bun/Creatinine Ratio 26.8 (12.0-20.0); CO2, Blood 27 mmol/L (21-32); Calcium, Blood 9.1 mg/dL (8.5-10.1); Chloride, Blood 102 mmol/L (98-108); Ethanol (Alcohol), Blood, Med <3 mg/dL; Globulin, Blood 3.6 g/dL (2.2-4.0); Glomerular Filtration Rate >60 (60-); Glucose, Blood 93 mg/dL (70-99); Potassium, Blood 4.6 mmol/L (3.5-5.5); Salicylate 1.7 mg/dL (2.8-20.0); Sodium, Blood 138 mmol/L (136-145); Total Protein, Blood 7.1 g/dL (6.4-8.2)
[2021-06-28 14:06] LABS: Source, Urine Clean Catch
[2021-06-28 14:44] LABS: Appearance, Urine Clear (Clear); Bilirubin, Urine Neg (Neg); Blood, Urine Neg (Neg); Glucose Qualitative, Urine Neg (Neg); Ketones, Urine Neg (Neg); Leukocyte Esterase, Urine Neg (Neg); Nitrite, Urine Neg (Neg); Protein, Urine 1+ (Neg); Specific Gravity, Urine 1.015 (1.003-1.022); Urobilinogen, Urine NORM (Normal)
[2021-06-28 15:21] LABS: U Amphetamine Screen DETECTED
[2021-06-28 15:22] LABS: U Barbituate Screen Not Detected; U Benzodiazapine Screen Not Detected; U Buprenorphine Screen Not Detected; U Cannabinoids Screen DETECTED; U Cocaine Screen Not Detected; U Methadone Screen Not Detected; U Methamphetamine Screen DETECTED; U Opiates Screen Not Detected; U Oxycodone Screen Not Detected; U Phencyclidine Screen Not Detected; U Propoxyphene Screen Not Detected
[2021-06-28 15:44] LABS: Color, Urine Pale Yellow (P-Yellow)
[2021-06-28 15:47] LABS: Free Thyroxine 1.09 ng/dL (0.70-1.60); Triiodothyronine, Free 3.64 pg/mL (2.18-3.98)
== END 2021-06-28 16:30 | disposition home or self-care (01) ==
LOC: ER 10:46
PROVIDERS: Student in an Organized Health Care Education/Training Program
DX: F19.10 Other psychoactive substance abuse, uncomplicated (principal); R41.82 Altered mental status, unspecified; D72.829 Elevated white blood cell count, unspecified; J44.9 Chronic obstructive pulmonary disease, unspecified; K21.9 Gastro-esophageal reflux disease without esophagitis; F17.210 Nicotine dependence, cigarettes, uncomplicated
CPT/HCPCS: 36415; 70450; 71046; 80053; 84439; 84443; 84481; 85025; 99285-25; G0480

== ENCOUNTER 2021-08-13 20:41 | Emergency (ER) | payer OTHER ==
[~2021-08-13] VITALS: Ht 182.9 cm; Wt 68.0 kg
== END 2021-08-13 21:58 | disposition home or self-care (01) ==
LOC: ER 20:41
DX: T33.822A Superficial frostbite of left foot, initial encounter (principal); T33.821A Superficial frostbite of right foot, initial encounter; K21.9 Gastro-esophageal reflux disease without esophagitis; J44.9 Chronic obstructive pulmonary disease, unspecified; F17.210 Nicotine dependence, cigarettes, uncomplicated
CPT/HCPCS: 99283; A9270

== ENCOUNTER 2021-08-15 05:46 | Emergency (ER) | payer OTHER ==
[~2021-08-15] VITALS: Ht 182.9 cm; Wt 68.0 kg
[2021-08-15] MEDS ORDERED: CEPH500 PO (06:36)
[2021-08-15] MEDS ORDERED: IBUP800 PO (06:36)
== END 2021-08-15 07:15 | disposition home or self-care (01) ==
LOC: ER 05:46
DX: S81.801A Unspecified open wound, right lower leg, initial encounter (principal); L03.115 Cellulitis of right lower limb; J44.9 Chronic obstructive pulmonary disease, unspecified; K21.9 Gastro-esophageal reflux disease without esophagitis; F17.210 Nicotine dependence, cigarettes, uncomplicated; W22.8XXA Striking against or struck by other objects, initial encounter
CPT/HCPCS: 73562-RT; 99283-25; A9270

== ENCOUNTER 2021-11-13 11:51 | Emergency (ER) | payer OTHER ==
[~2021-11-13] VITALS: Ht 182.9 cm; Wt 65.8 kg
[~2021-11-13 11:51] MED LIST changes: +IBUP800 PO
[2021-11-13] MEDS ORDERED: IBUP800 PO (14:17)
== END 2021-11-13 14:30 | disposition home or self-care (01) ==
LOC: ER 11:51
DX: M54.50 Low back pain, unspecified (principal); R51.9 Headache, unspecified; T14.8XXA Other injury of unspecified body region, initial encounter; Y08.89XA Assault by other specified means, initial encounter; J44.9 Chronic obstructive pulmonary disease, unspecified; F17.210 Nicotine dependence, cigarettes, uncomplicated
CPT/HCPCS: 70450; 72100; A9270

== ENCOUNTER 2021-12-11 17:34 | Emergency (ER) | payer OTHER ==
[~2021-12-11] VITALS: Ht 182.9 cm; Wt 65.8 kg
[2021-12-11 18:14] LABS: BASOPHILS ABSOLUTE AUTO 0.02 K/mm3 (0.00-0.23); BASOPHILS PERCENT AUTO 0 % (0-2); EOSINOPHILS PERCENT AUTO 0 % (0-6); Hematocrit 45.2 % (37.0-53.0); Hemoglobin 15.5 g/dL (13.5-17.5); IMMATURE GRAN ABSOLUTE AUTO 0.06 K/mm3 (0.00-0.10); IMMATURE GRAN PERCENT AUTO 0 % (0-1); LYMPHOCYTES ABSOLUTE AUTO 0.82 K/mm3 (0.84-5.20); LYMPHOCYTES PERCENT AUTO 6 % (21-46); MONOCYTES ABSOLUTE AUTO 1.39 K/mm3 (0.16-1.47); MONOCYTES PERCENT AUTO 10 % (4-13); Mean Corpuscular HGB 29.6 pg (26.0-34.0); Mean Corpuscular HGB Conc 34.3 g/dL (31.5-36.5); Mean Corpuscular Volume 86 fL (80-100); Mean Platelet Volume 9.7 fL (9.1-12.4); NEUTROPHILS PERCENT AUTO 84 % (41-73); Platelet Count 462 K/mm3 (150-400); RDW Coefficient Variation 13.9 % (11.7-14.2); RDW Standard Deviation 44.1 fL (35.1-46.3); Red Blood Cell Count 5.23 M/mm3 (4.30-5.90); White Blood Cell Count 14.09 K/mm3 (4.00-11.30)
[2021-12-11 18:33] LABS: Albumin, Blood 3.5 g/dL (3.4-5.0); Albumin/Globulin Ratio 0.8 (0.8-1.8); Bilirubin, Total 0.5 mg/dL (0.1-1.0); Bun/Creatinine Ratio 37.5 (12.0-20.0); Calcium, Blood 8.4 mg/dL (8.5-10.1); Creatinine, Blood 2.59 mg/dL (0.60-1.20); Globulin, Blood 4.6 g/dL (2.2-4.0); Potassium, Blood 3.9 mmol/L (3.5-5.5); Total Protein, Blood 8.1 g/dL (6.4-8.2)
== END 2021-12-11 21:06 | disposition home or self-care (01) ==
LOC: ER 17:34
PROVIDERS: Student in an Organized Health Care Education/Training Program
DX: N17.9 Acute kidney failure, unspecified (principal); E86.0 Dehydration; K21.9 Gastro-esophageal reflux disease without esophagitis; J44.9 Chronic obstructive pulmonary disease, unspecified; F17.210 Nicotine dependence, cigarettes, uncomplicated
CPT/HCPCS: 74176; 80053; 85025; 93005; 93010; 99284-25; A9270; J7030

== ENCOUNTER 2022-12-22 17:02 | Emergency (ER) | payer OTHER ==
[~2022-12-22] VITALS: Ht 182.9 cm; Wt 61.2 kg
[2022-12-22 17:21] VITALS: BP 145/62
== END 2022-12-22 18:11 | disposition home or self-care (01) ==
LOC: ER 17:02
DX: K12.0 Recurrent oral aphthae (principal); J44.9 Chronic obstructive pulmonary disease, unspecified; F17.210 Nicotine dependence, cigarettes, uncomplicated
CPT/HCPCS: 99282

== ENCOUNTER 2023-05-20 23:31 | Emergency (ER) | payer OTHER ==
[~2023-05-20] VITALS: Ht 182.9 cm; Wt 63.5 kg
[2023-05-20 23:51] LABS: BASOPHILS ABSOLUTE AUTO 0.05 K/mm3 (0.00-0.23); BASOPHILS PERCENT AUTO 0 % (0-2); EOSINOPHILS ABSOLUTE AUTO 0.29 K/mm3 (0.00-0.68); EOSINOPHILS PERCENT AUTO 2 % (0-6); Hematocrit 39.3 % (37.0-53.0); Hemoglobin 12.2 g/dL (13.5-17.5); IMMATURE GRAN ABSOLUTE AUTO 0.05 K/mm3 (0.00-0.10); IMMATURE GRAN PERCENT AUTO 0 % (0-1); LYMPHOCYTES ABSOLUTE AUTO 1.98 K/mm3 (0.84-5.20); LYMPHOCYTES PERCENT AUTO 15 % (21-46); MONOCYTES ABSOLUTE AUTO 0.97 K/mm3 (0.16-1.47); MONOCYTES PERCENT AUTO 7 % (4-13); Mean Corpuscular HGB 30.3 pg (26.0-34.0); Mean Corpuscular Volume 98 fL (80-100); Mean Platelet Volume 9.5 fL (9.1-12.4); NEUTROPHILS ABSOLUTE AUTO 10.03 K/mm3 (1.96-9.15); NEUTROPHILS PERCENT AUTO 75 % (41-73); Platelet Count 336 K/mm3 (150-400); RDW Coefficient Variation 13.1 % (11.7-14.2); RDW Standard Deviation 46.9 fL (35.1-46.3); Red Blood Cell Count 4.02 M/mm3 (4.30-5.90); White Blood Cell Count 13.37 K/mm3 (4.00-11.30)
[2023-05-21 00:10] LABS: Albumin, Blood 3.3 g/dL (3.4-5.0); Albumin/Globulin Ratio 0.9 (0.8-1.8); Bilirubin, Total 0.2 mg/dL (0.1-1.0); Bun/Creatinine Ratio 22.7 (12.0-20.0); Calcium, Blood 8.4 mg/dL (8.5-10.1); Creatinine, Blood 1.54 mg/dL (0.60-1.20); Globulin, Blood 3.7 g/dL (2.2-4.0); Potassium, Blood 4.6 mmol/L (3.5-5.5)
[2023-05-21] MEDS ORDERED: FAMO20 PO (02:40)
[2023-05-21] MEDS ORDERED: ALMACONE SUSPE355 ML PO (02:40)
[2023-05-21 02:48] VITALS: BP 165/109
== END 2023-05-21 02:49 | disposition home or self-care (01) ==
LOC: ER 23:31
PROVIDERS: Emergency Medicine
DX: R07.9 Chest pain, unspecified (principal); F17.210 Nicotine dependence, cigarettes, uncomplicated
CPT/HCPCS: 71045; 80053; 84484; 85025; 93005; 93010; 99285-25

== ENCOUNTER → 2023-11-26 | Outpatient (CLI) | payer OTHER ==
[~2023-11-26] MED LIST changes: +ALMACONE SUSPE355 ML PO
[2023-11-26 18:50] LABS: BASOPHILS ABSOLUTE AUTO 0.07 K/mm3 (0.00-0.23); BASOPHILS PERCENT AUTO 0 % (0-2); EOSINOPHILS ABSOLUTE AUTO 0.11 K/mm3 (0.00-0.68); EOSINOPHILS PERCENT AUTO 1 % (0-6); Hematocrit 50.8 % (37.0-53.0); Hemoglobin 15.9 g/dL (13.5-17.5); IMMATURE GRAN ABSOLUTE AUTO 0.07 K/mm3 (0.00-0.10); IMMATURE GRAN PERCENT AUTO 0 % (0-1); LYMPHOCYTES ABSOLUTE AUTO 1.21 K/mm3 (0.84-5.20); LYMPHOCYTES PERCENT AUTO 7 % (21-46); MONOCYTES ABSOLUTE AUTO 1.03 K/mm3 (0.16-1.47); MONOCYTES PERCENT AUTO 6 % (4-13); Mean Corpuscular HGB 29.9 pg (26.0-34.0); Mean Corpuscular HGB Conc 31.3 g/dL (31.5-36.5); Mean Corpuscular Volume 96 fL (80-100); Mean Platelet Volume 10.2 fL (9.1-12.4); NEUTROPHILS ABSOLUTE AUTO 14.37 K/mm3 (1.96-9.15); NEUTROPHILS PERCENT AUTO 85 % (41-73); Platelet Count 406 K/mm3 (150-400); RDW Coefficient Variation 14.1 % (11.7-14.2); RDW Standard Deviation 49.4 fL (35.1-46.3); Red Blood Cell Count 5.32 M/mm3 (4.30-5.90); White Blood Cell Count 16.86 K/mm3 (4.00-11.30)
[2023-11-26 19:43] LABS: Free Thyroxine 0.96 ng/dL (0.70-1.60); Thyroid Stimulating Hormone 6.13 uIU/mL (0.360-4.800)
== END ==
LOC: LAB SHORT 18:10 → LAB 18:10
PROVIDERS: Family Medicine
DX: D72.829 Elevated white blood cell count, unspecified (principal); R94.6 Abnormal results of thyroid function studies
CPT/HCPCS: 84439; 84443; 85025

== ENCOUNTER 2024-07-11 18:31 | Emergency (ER) | payer OTHER ==
[~2024-07-11] VITALS: Ht 182.9 cm; Wt 63.5 kg
[2024-07-11 20:14] LABS: BASOPHILS ABSOLUTE AUTO 0.04 K/mm3 (0.00-0.23); BASOPHILS PERCENT AUTO 0 % (0-2); EOSINOPHILS ABSOLUTE AUTO 0.04 K/mm3 (0.00-0.68); EOSINOPHILS PERCENT AUTO 0 % (0-6); Hematocrit 49.7 % (37.0-53.0); IMMATURE GRAN ABSOLUTE AUTO 0.06 K/mm3 (0.00-0.10); IMMATURE GRAN PERCENT AUTO 1 % (0-1); LYMPHOCYTES ABSOLUTE AUTO 1.14 K/mm3 (0.84-5.20); LYMPHOCYTES PERCENT AUTO 9 % (21-46); MONOCYTES ABSOLUTE AUTO 0.74 K/mm3 (0.16-1.47); MONOCYTES PERCENT AUTO 6 % (4-13); Mean Corpuscular HGB Conc 32.2 g/dL (31.5-36.5); Mean Corpuscular Volume 93 fL (80-100); Mean Platelet Volume 9.8 fL (9.1-12.4); NEUTROPHILS PERCENT AUTO 83 % (41-73); Platelet Count 544 K/mm3 (150-400); RDW Coefficient Variation 14.1 % (11.7-14.2); RDW Standard Deviation 48.4 fL (35.1-46.3); Red Blood Cell Count 5.33 M/mm3 (4.30-5.90); White Blood Cell Count 12.12 K/mm3 (4.00-11.30)
[2024-07-11 20:29] LABS: Albumin, Blood 3.4 g/dL (3.4-5.0); Albumin/Globulin Ratio 0.7 (0.8-1.8); Bilirubin, Total 0.5 mg/dL (0.1-1.0); Bun/Creatinine Ratio 26.3 (12.0-20.0); Calcium, Blood 9.6 mg/dL (8.5-10.1); Creatinine, Blood 1.86 mg/dL (0.60-1.20); Globulin, Blood 4.8 g/dL (2.2-4.0); Potassium, Blood 4.5 mmol/L (3.5-5.5); Total Protein, Blood 8.2 g/dL (6.4-8.2)
[2024-07-11] MEDS ORDERED: Ondansetron 8 MG SoluTab SL ONE (20:40)
[2024-07-11] MEDS ORDERED: ONDA4ODT MM (20:46)
[2024-07-11 20:49] VITALS: BP 168/85
[2024-07-11 21:08] LABS: Source, Urine Clean Catch
[2024-07-11 21:11] LABS: Appearance, Urine Clear (Clear); Bilirubin, Urine Neg (Neg); Blood, Urine 1+ (Neg); Color, Urine Yellow (P-Yellow); Glucose Qualitative, Urine Neg (Neg); Ketones, Urine Neg (Neg); Leukocyte Esterase, Urine Neg (Neg); Nitrite, Urine Neg (Neg); Protein, Urine 3+ (Neg); Specific Gravity, Urine 1.025 (1.003-1.022); Urobilinogen, Urine 1+ (Normal)
[2024-07-11 21:21] LABS: Bacteria Rare /hpf; Red Blood Cells, Urine 0-2 /hpf (0-2); Squamous Epithelial Cells Rare /hpf (Few); White Blood Cells, Urine 0-2 /hpf (0-5)
== END 2024-07-11 21:00 | disposition home or self-care (01) ==
LOC: ER 18:31
PROVIDERS: Student in an Organized Health Care Education/Training Program
DX: R11.2 Nausea with vomiting, unspecified (principal); R10.9 Unspecified abdominal pain; I10 Essential (primary) hypertension; R79.89 Other specified abnormal findings of blood chemistry; F17.210 Nicotine dependence, cigarettes, uncomplicated; K21.9 Gastro-esophageal reflux disease without esophagitis; Z79.899 Other long term (current) drug therapy; Z88.1 Allergy status to other antibiotic agents
CPT/HCPCS: 80053; 81001; 83690; 85025; 99284; A9270

== ENCOUNTER → 2025-02-15 | Outpatient (CLI) | payer OTHER ==
[~2025-02-15] MED LIST changes: +ONDA4ODT MM
[2025-02-15 19:28] LABS: BASOPHILS ABSOLUTE AUTO 0.05 K/mm3 (0.00-0.23); BASOPHILS PERCENT AUTO 1 % (0-2); EOSINOPHILS ABSOLUTE AUTO 0.26 K/mm3 (0.00-0.68); EOSINOPHILS PERCENT AUTO 2 % (0-6); Hematocrit 41.8 % (37.0-53.0); Hemoglobin 13.3 g/dL (13.5-17.5); IMMATURE GRAN ABSOLUTE AUTO 0.02 K/mm3 (0.00-0.10); IMMATURE GRAN PERCENT AUTO 0 % (0-1); LYMPHOCYTES ABSOLUTE AUTO 1.49 K/mm3 (0.84-5.20); LYMPHOCYTES PERCENT AUTO 14 % (21-46); MONOCYTES ABSOLUTE AUTO 1.09 K/mm3 (0.16-1.47); MONOCYTES PERCENT AUTO 10 % (4-13); Mean Corpuscular HGB Conc 31.8 g/dL (31.5-36.5); Mean Corpuscular Volume 95 fL (80-100); NEUTROPHILS ABSOLUTE AUTO 8.05 K/mm3 (1.96-9.15); NEUTROPHILS PERCENT AUTO 73 % (41-73); NRBC ABSOLUTE 0.00 K/mm3 (0.00-0.02); NRBC Auto 0.0 /100 WBC (0.0-0.2); Platelet Count 340 K/mm3 (150-400); RDW Coefficient Variation 14.1 % (11.7-14.2); RDW Standard Deviation 49.4 fL (35.1-46.3)
[2025-02-15 19:52] LABS: Alanine Aminotransfer (ALT/SGP 65 U/L (12-78); Albumin, Blood 3.6 g/dL (3.4-5.0); Albumin/Globulin Ratio 1.1 (0.8-1.8); Anion Gap 8 mmol/L (3-11); Aspartate Aminotrans (AST/SGOT 47 U/L (12-37); Bilirubin, Total 0.4 mg/dL (0.1-1.0); Blood Urea Nitrogen 30 mg/dL (8-24); CHOL/HDL RATIO 2.5; CO2, Blood 27 mmol/L (21-32); Calcium, Blood 8.3 mg/dL (8.5-10.1); Chloride, Blood 105 mmol/L (98-108); Cholesterol 155 mg/dL (50-200); Creatinine, Blood 1.65 mg/dL (0.60-1.20); Globulin, Blood 3.3 g/dL (2.2-4.0); Glucose, Blood 100 mg/dL (70-99); HDL Cholesterol 61 mg/dL (>39); LDL/HDL RATIO 1.0; Low Density Lipoprotein Chol 58 mg/dL (0-110); Potassium, Blood 4.1 mmol/L (3.5-5.5); Sodium, Blood 136 mmol/L (136-145); Total Protein, Blood 6.9 g/dL (6.4-8.2); Triglycerides 180 mg/dL (30-160); Very Low Density Lipoprot Chol 36 mg/dL (6-32)
[2025-02-17 17:55] LABS: HEPATITIS C AB CIA INTERP Negative (Negative); HEPATITIS C ANTIBODY CIA INDEX 0.02 IV
[2025-02-18 07:34] LABS: HIV 1,2 COMBO ANTIGEN/ANTIBODY Negative (Negative)
== END | disposition home or self-care (01) ==
LOC: LAB SHORT 17:02 → LAB 17:02
DX: Z11.59 Encounter for screening for other viral diseases (principal); Z11.4 Encounter for screening for human immunodeficiency virus [HIV]; D72.828 Other elevated white blood cell count
CPT/HCPCS: 80053; 80061; 85025; 86803; 87389

== ENCOUNTER 2025-03-08 18:33 | Inpatient (IN) | payer OTHER ==
[~2025-03-08] VITALS: Ht 182.9 cm; Wt 63.0 kg
[2025-03-08] MEDS ORDERED: Ondansetron HCl 2 MG / ML 2ML Vial IV ONE (18:40)
[2025-03-08] MEDS ORDERED: NS 1,000 ML IV SCH ×2 (18:40→23:00)
[2025-03-08 19:08] LABS: BASOPHILS ABSOLUTE AUTO 0.05 K/mm3 (0.00-0.23); BASOPHILS PERCENT AUTO 0 % (0-2); EOSINOPHILS ABSOLUTE AUTO 0.05 K/mm3 (0.00-0.68); EOSINOPHILS PERCENT AUTO 0 % (0-6); Hemoglobin 18.8 g/dL (13.5-17.5); IMMATURE GRAN ABSOLUTE AUTO 0.03 K/mm3 (0.00-0.10); IMMATURE GRAN PERCENT AUTO 0 % (0-1); LYMPHOCYTES ABSOLUTE AUTO 1.28 K/mm3 (0.84-5.20); LYMPHOCYTES PERCENT AUTO 10 % (21-46); MONOCYTES ABSOLUTE AUTO 0.89 K/mm3 (0.16-1.47); MONOCYTES PERCENT AUTO 7 % (4-13); Mean Corpuscular HGB Conc 33.6 g/dL (31.5-36.5); Mean Corpuscular Volume 92 fL (80-100); NEUTROPHILS ABSOLUTE AUTO 10.66 K/mm3 (1.96-9.15); NEUTROPHILS PERCENT AUTO 82 % (41-73); NRBC ABSOLUTE 0.00 K/mm3 (0.00-0.02); NRBC Auto 0.0 /100 WBC (0.0-0.2); Platelet Count 425 K/mm3 (150-400); RDW Coefficient Variation 14.3 % (11.7-14.2); RDW Standard Deviation 48.8 fL (35.1-46.3)
[2025-03-08 19:09] LABS: Hematocrit 55.9 % (37.0-53.0)
[2025-03-08 19:59] LABS: Alanine Aminotransfer (ALT/SGP 39.0 U/L (12-78); Albumin, Blood 4.4 g/dL (3.4-5.0); Albumin/Globulin Ratio 1.1 (0.8-1.8); Anion Gap 8.0 mmol/L (3-11); Aspartate Aminotrans (AST/SGOT 25.0 U/L (12-37); Bilirubin, Total 0.6 mg/dL (0.1-1.0); Blood Urea Nitrogen 49.0 mg/dL (8-24); CO2, Blood 26.0 mmol/L (21-32); Calcium, Blood 9.8 mg/dL (8.5-10.1); Chloride, Blood 101.0 mmol/L (98-108); Creatinine, Blood 2.88 mg/dL (0.60-1.20); Globulin, Blood 4.1 g/dL (2.2-4.0); Glucose, Blood 136.0 mg/dL (70-99); Potassium, Blood 4.9 mmol/L (3.5-5.5); Sodium, Blood 130.0 mmol/L (136-145); Total Protein, Blood 8.5 g/dL (6.4-8.2)
[2025-03-08] MEDS ORDERED: PRAZ1 PO (23:06)
[2025-03-08] MEDS ORDERED: AMLO10 PO (23:06)
[2025-03-08] MEDS ORDERED: LOSA50 PO (23:06)
[2025-03-08 23:27] VITALS: BP 152/107
[2025-03-09 00:31] LABS: Anion Gap 10.0 mmol/L (3-11); Blood Urea Nitrogen 49.0 mg/dL (8-24); CO2, Blood 24.0 mmol/L (21-32); Calcium, Blood 8.9 mg/dL (8.5-10.1); Chloride, Blood 103.0 mmol/L (98-108); Creatinine, Blood 2.76 mg/dL (0.60-1.20); Glucose, Blood 98.0 mg/dL (70-99); Potassium, Blood 5.1 mmol/L (3.5-5.5); Sodium, Blood 132.0 mmol/L (136-145)
--- NOTE | 2025-03-09 03:52 | NUR ---
SHIFT SUMMARY: PT ARRIVED ON UNIT AT 2324. PT SHOWERED 1 PER AST. SNACK GIVEN TO PT AND FLUIDS HUNG PER EMAR. PT BELONGINGS PLACED IN A BAG IN THE CLOSET. 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 PT IS PLEASENT AND COOPERATIVE WITH CARE. PT IS AOX4 AND STATES HE IS UNHOUSED LIVING AT A CAMP CALLED [facility]". PT STATED HE USED METH EARLIER THIS DAY BUT DENIES USING ALCOHOL. PT ASLEEP MOST OF THE SHIFT.
[2025-03-09 05:20] VITALS: BP 153/96
[2025-03-09 07:35] VITALS: BP 165/112
[2025-03-09 08:28] LABS: Hematocrit 50.8 % (37.0-53.0); Hemoglobin 16.7 g/dL (13.5-17.5); Mean Corpuscular HGB Conc 32.9 g/dL (31.5-36.5); Mean Corpuscular Volume 94 fL (80-100); NRBC ABSOLUTE 0.00 K/mm3 (0.00-0.02); NRBC Auto 0.0 /100 WBC (0.0-0.2); Platelet Count 305 K/mm3 (150-400); RDW Coefficient Variation 14.3 % (11.7-14.2); RDW Standard Deviation 49.1 fL (35.1-46.3)
[2025-03-09 08:53] LABS: Anion Gap 11.0 mmol/L (3-11); Blood Urea Nitrogen 43.0 mg/dL (8-24); CO2, Blood 22.0 mmol/L (21-32); Calcium, Blood 8.3 mg/dL (8.5-10.1); Chloride, Blood 106.0 mmol/L (98-108); Creatinine, Blood 2.29 mg/dL (0.60-1.20); Glucose, Blood 80.0 mg/dL (70-99); Potassium, Blood 5.2 mmol/L (3.5-5.5); Sodium, Blood 134.0 mmol/L (136-145)
[2025-03-09] MEDS ORDERED: Miconazole Nitrate 2% 85 GM PWD TOP SCH (09:00)
--- NOTE | 2025-03-09 09:00 | NUR ---
pt laying in bed with eyes closed, wakes briefly then returns to sleep, a/ox4, cooperative with care, follows commands well, lungs are clear in upper boss, dim/course in bases, on r/a, no cough noted, hrr, bounding, trace edema noted to b/l le, ppp+1, cap refill<3 sec, vs stable, afbrile, piv to jd site is clear and patent, btx4, abd flat soft nontender, voids without diff, skin c/w/d, audie meredith, call light in reach.
[2025-03-09] MEDS ORDERED: Peg/Electrolytes 4,000 ML BTL PO ONE (13:40)
[2025-03-09 17:18] VITALS: BP 160/110
[2025-03-09] MEDS ORDERED: Peg/Electrolytes 4,000 ML BTL PO SCH (19:00)
--- NOTE | 2025-03-09 19:21 | NUR ---
pt slept most of the day, Dr. Hess saw him and will do bowel prep tonight, npo after mid, clears until mid, no acute changes, pt understands the plan, he is very [place], call light in reach.
[2025-03-09 19:48] VITALS: BP 165/111
[2025-03-10 04:38] VITALS: BP 157/107
[2025-03-10 05:03] LABS: Hematocrit 47.1 % (37.0-53.0); Hemoglobin 15.5 g/dL (13.5-17.5); Mean Corpuscular HGB Conc 32.9 g/dL (31.5-36.5); Mean Corpuscular Volume 92 fL (80-100); NRBC ABSOLUTE 0.00 K/mm3 (0.00-0.02); NRBC Auto 0.0 /100 WBC (0.0-0.2); Platelet Count 292 K/mm3 (150-400); RDW Coefficient Variation 13.9 % (11.7-14.2); RDW Standard Deviation 47.3 fL (35.1-46.3)
[2025-03-10 05:24] LABS: Albumin, Blood 3.0 g/dL (3.4-5.0); Anion Gap 11 mmol/L (3-11); Blood Urea Nitrogen 33 mg/dL (8-24); CO2, Blood 22 mmol/L (21-32); Calcium, Blood 8.3 mg/dL (8.5-10.1); Chloride, Blood 106 mmol/L (98-108); Creatinine, Blood 1.85 mg/dL (0.60-1.20); Glucose, Blood 82 mg/dL (70-99); Magnesium, Blood 1.7 mg/dL (1.6-2.4); Phosphorus, Blood 3.0 mg/dL (2.5-4.9); Potassium, Blood 4.4 mmol/L (3.5-5.5); Sodium, Blood 135 mmol/L (136-145)
[2025-03-10] MEDS ORDERED: Pantoprazole Sodium 40 MG Injection IV SCH (06:00)
--- NOTE | 2025-03-10 06:04 | NUR ---
SHIFT SUMMARY; PATIENT SLEPT IN SHORT INTERVALS. REFUSED TO DRINK ALL THE GOLYTL SHIFT [facility]; PATIENT SLEPT IN SHORT INTERVALS, REFUSED TO FINSIH RAGINI. NPO AT , EXCEPT [place]. HAVE NOT SEEN THE BM RESULLTS, PUT BED ALAM ON TO CATCH HIM UP. IV FLUIDS ALL NIGHT LONG. HTN ALSO.
[2025-03-10 07:28] VITALS: BP 170/113
--- NOTE | 2025-03-10 09:00 | NUR ---
Pt laying in bed watching tv, a/ox3-4,profoundly [place], was reported that he was very upset about the volume of bowel prep, he reports to this nurse that he only had one small bm and states it was clear, encouraged him to finish drinking the bowel prep, but he isn't attempting to do so, lungs are dim t/o, course in bases, on r/a, no cough noted, hrr, no edema noted, ppp+1, cap refill <3 sec, vs stable, afebrile, piv to jd site is clear and patent, btx4, abd flat soft nontender, voids without diff, skin c/w/d, maew, up in room ad hiro, audie, call light in reach.
[2025-03-10] MEDS ORDERED: Magnesium Citrate 300 ML BTL PO ONE (11:40)
[2025-03-10 15:47] VITALS: BP 146/112
[2025-03-10 19:49] VITALS: BP 149/109
[2025-03-10 23:31] VITALS: BP 134/94
[2025-03-11 04:38] VITALS: BP 156/103
[2025-03-11 05:44] LABS: Hematocrit 51.7 % (37.0-53.0); Hemoglobin 16.3 g/dL (13.5-17.5); Mean Corpuscular HGB Conc 31.5 g/dL (31.5-36.5); NRBC ABSOLUTE 0.00 K/mm3 (0.00-0.02); NRBC Auto 0.0 /100 WBC (0.0-0.2); Platelet Count 299 K/mm3 (150-400); RDW Coefficient Variation 14.2 % (11.7-14.2); RDW Standard Deviation 50.4 fL (35.1-46.3)
[2025-03-11 05:47] LABS: Mean Corpuscular Volume 97 fL (80-100)
[2025-03-11 06:14] LABS: Albumin, Blood 2.8 g/dL (3.4-5.0); Anion Gap 12 mmol/L (3-11); Blood Urea Nitrogen 22 mg/dL (8-24); CO2, Blood 21 mmol/L (21-32); Calcium, Blood 8.1 mg/dL (8.5-10.1); Chloride, Blood 107 mmol/L (98-108); Creatinine, Blood 1.63 mg/dL (0.60-1.20); Glucose, Blood 72 mg/dL (70-99); Magnesium, Blood 2.0 mg/dL (1.6-2.4); Phosphorus, Blood 2.6 mg/dL (2.5-4.9); Potassium, Blood 4.7 mmol/L (3.5-5.5); Sodium, Blood 135 mmol/L (136-145)
--- NOTE | 2025-03-11 06:21 | NUR ---
SHIFT SUMMARY; PATIENT SLEPT IN SHORT INTERVALS, UP TO BR OFTEN D/T BOWEL PREP. MADE NPO AFTER MIDNIGHT. IVF/NS/100ML/HR ALL NIGHT. WAS PLEASANT TO WORK WITH AND DID NOT YELL TONIGHT. APOLOGIZED FOR LAST NIGHT,
[2025-03-11 08:17] VITALS: BP 164/114
[2025-03-11 12:37] VITALS: BP 172/108
--- NOTE | 2025-03-11 15:57 | NUR ---
History, Chart, Medications and Allergies reviewed before start of procedure. Pre-Op teaching done. Pt verbalizes understanding. Patient confirms NPO status and agrees with scheduled surgery.
--- NOTE | 2025-03-11 16:23 | NUR ---
03/11/25 1623 Kayleigh Dahl CRNA; SEE ANESTHESIA RECORDS.
[2025-03-11 19:54] VITALS: BP 157/108
[2025-03-12 02:58] VITALS: BP 129/84
--- NOTE | 2025-03-12 06:47 | NUR ---
SHIFT SUMMARY PT A/Ox4, VSS ON RA. NO ACUTE CHANGES OVERNIGHT. PT TOLERATING REGULAR DIET WELL. PT DENIES PAIN, SOB, NAUSEA.
[2025-03-12 07:36] VITALS: BP 155/107
[2025-03-12 10:03] VITALS: BP 141/87
[2025-03-12] MEDS ORDERED: CARV6.25 PO (14:03)
--- NOTE | 2025-03-12 14:22 | NUR ---
PATIENT DISCHARGED AT 14:08. RN WALKED THE PATIENT DOWN TO SECURITY TO GET HIS LIGHER AND THEN OUT TO THE TAXI.
== END 2025-03-12 14:34 | disposition home or self-care (01) | DRG 683 ==
LOC: ER 18:33 → MEDS 18:34
PROVIDERS: Emergency Medicine; Internal Medicine; Student in an Organized Health Care Education/Training Program; Surgery; ADMIT Internal Medicine
PROC: 0DJD8ZZ Inspection of Lower Intestinal Tract, Via Natural or Artificial Opening Endoscopic (ICD-10-PCS; principal; 2025-03-11 12:00)
DX: N17.9 Acute kidney failure, unspecified (principal); K56.1 Intussusception; Z59.00 Homelessness unspecified; K21.9 Gastro-esophageal reflux disease without esophagitis; J44.9 Chronic obstructive pulmonary disease, unspecified; F15.90 Other stimulant use, unspecified, uncomplicated; E78.1 Pure hyperglyceridemia; N18.30 Chronic kidney disease, stage 3 unspecified; I12.9 Hypertensive chronic kidney disease with stage 1 through stage 4 chronic kidney disease, or unspecified chronic kidney disease; Z90.49 Acquired absence of other specified parts of digestive tract; F17.210 Nicotine dependence, cigarettes, uncomplicated; Z79.899 Other long term (current) drug therapy; Z98.890 Other specified postprocedural states; Z88.1 Allergy status to other antibiotic agents
CPT/HCPCS: 36415; 74177; 80048; 80053; 80069; 83690; 83735; 85025; 85027; 93005; 93010; 96360-59; 99285-25; A9270; G0378; J2470; J2704; J7030; J7120; Q9967

== ENCOUNTER 2025-06-01 14:57 | Emergency (ER) | payer OTHER | END 2025-06-01 17:06 | disposition home or self-care (01) | LOC: ER 14:57 | DX: M79.605 Pain in left leg (principal); I10 Essential (primary) hypertension; F17.210 Nicotine dependence, cigarettes, uncomplicated; Z79.899 Other long term (current) drug therapy ==

== ENCOUNTER 2025-06-28 21:15 | Inpatient (IN) | payer OTHER ==
[~2025-06-28] VITALS: Ht 170.2 cm; Wt 64.2 kg
[~2025-06-28 21:15] MED LIST changes: +AMLO10 PO; +CARV6.25 PO; +LOSA50 PO; +PRAZ1 PO
[2025-06-28 23:22] LABS: BASOPHILS ABSOLUTE AUTO 0.07 K/mm3 (0.00-0.23); BASOPHILS PERCENT AUTO 1 % (0-2); EOSINOPHILS ABSOLUTE AUTO 0.24 K/mm3 (0.00-0.68); EOSINOPHILS PERCENT AUTO 2 % (0-6); Hematocrit 50.7 % (37.0-53.0); Hemoglobin 15.6 g/dL (13.5-17.5); IMMATURE GRAN ABSOLUTE AUTO 0.05 K/mm3 (0.00-0.10); IMMATURE GRAN PERCENT AUTO 0 % (0-1); LYMPHOCYTES ABSOLUTE AUTO 1.92 K/mm3 (0.84-5.20); LYMPHOCYTES PERCENT AUTO 13 % (21-46); MONOCYTES ABSOLUTE AUTO 1.71 K/mm3 (0.16-1.47); MONOCYTES PERCENT AUTO 11 % (4-13); Mean Corpuscular HGB Conc 30.8 g/dL (31.5-36.5); Mean Corpuscular Volume 95 fL (80-100); NEUTROPHILS ABSOLUTE AUTO 11.11 K/mm3 (1.96-9.15); NEUTROPHILS PERCENT AUTO 74 % (41-73); NRBC ABSOLUTE 0.00 K/mm3 (0.00-0.02); NRBC Auto 0.0 /100 WBC (0.0-0.2); Platelet Count 269 K/mm3 (150-400); RDW Coefficient Variation 14.2 % (11.7-14.2); RDW Standard Deviation 49.8 fL (35.1-46.3)
[2025-06-29 00:09] LABS: Alanine Aminotransfer (ALT/SGP 98.0 U/L (12-78); Albumin, Blood 2.9 g/dL (3.4-5.0); Albumin/Globulin Ratio 0.9 (0.8-1.8); Anion Gap 9.0 mmol/L (3-11); Aspartate Aminotrans (AST/SGOT 93.0 U/L (12-37); Bilirubin, Total 0.4 mg/dL (0.1-1.0); Blood Urea Nitrogen 50.0 mg/dL (8-24); CO2, Blood 27.0 mmol/L (21-32); Calcium, Blood 7.7 mg/dL (8.5-10.1); Chloride, Blood 107.0 mmol/L (98-108); Creatinine, Blood 1.84 mg/dL (0.60-1.20); Globulin, Blood 3.1 g/dL (2.2-4.0); Glucose, Blood 72.0 mg/dL (70-99); Potassium, Blood 4.1 mmol/L (3.5-5.5); Sodium, Blood 139.0 mmol/L (136-145); Total Protein, Blood 6.0 g/dL (6.4-8.2)
[2025-06-29] MEDS ORDERED: FLU VACC TS2025-26(6MOS UP)/PF 45 MCG/0.5 ML SYRINGE IM SCH (01:15)
[2025-06-29 04:01] LABS: BASOPHILS ABSOLUTE AUTO 0.05 K/mm3 (0.00-0.23); BASOPHILS PERCENT AUTO 0 % (0-2); EOSINOPHILS ABSOLUTE AUTO 0.26 K/mm3 (0.00-0.68); EOSINOPHILS PERCENT AUTO 2 % (0-6); Hematocrit 43.9 % (37.0-53.0); Hemoglobin 14.0 g/dL (13.5-17.5); IMMATURE GRAN ABSOLUTE AUTO 0.03 K/mm3 (0.00-0.10); IMMATURE GRAN PERCENT AUTO 0 % (0-1); LYMPHOCYTES ABSOLUTE AUTO 1.47 K/mm3 (0.84-5.20); LYMPHOCYTES PERCENT AUTO 12 % (21-46); MONOCYTES ABSOLUTE AUTO 1.39 K/mm3 (0.16-1.47); MONOCYTES PERCENT AUTO 12 % (4-13); Mean Corpuscular HGB Conc 31.9 g/dL (31.5-36.5); Mean Corpuscular Volume 95 fL (80-100); NEUTROPHILS ABSOLUTE AUTO 8.76 K/mm3 (1.96-9.15); NEUTROPHILS PERCENT AUTO 73 % (41-73); NRBC ABSOLUTE 0.00 K/mm3 (0.00-0.02); NRBC Auto 0.0 /100 WBC (0.0-0.2); Platelet Count 256 K/mm3 (150-400); RDW Coefficient Variation 14.1 % (11.7-14.2); RDW Standard Deviation 49.1 fL (35.1-46.3)
[2025-06-29 04:05] VITALS: BP 198/131
[2025-06-29 04:34] LABS: Alanine Aminotransfer (ALT/SGP 96 U/L (12-78); Albumin, Blood 2.8 g/dL (3.4-5.0); Albumin/Globulin Ratio 0.9 (0.8-1.8); Anion Gap 13 mmol/L (3-11); Aspartate Aminotrans (AST/SGOT 89 U/L (12-37); Bilirubin, Total 0.4 mg/dL (0.1-1.0); Blood Urea Nitrogen 49 mg/dL (8-24); CHOL/HDL RATIO 2.9; CO2, Blood 23 mmol/L (21-32); Calcium, Blood 7.8 mg/dL (8.5-10.1); Chloride, Blood 107 mmol/L (98-108); Cholesterol 134 mg/dL (50-200); Creatinine, Blood 1.81 mg/dL (0.60-1.20); Globulin, Blood 3.2 g/dL (2.2-4.0); Glucose, Blood 154 mg/dL (70-99); HDL Cholesterol 46 mg/dL (>39); LDL/HDL RATIO 1.4; Low Density Lipoprotein Chol 63 mg/dL (0-110); Magnesium, Blood 1.8 mg/dL (1.6-2.4); Potassium, Blood 4.5 mmol/L (3.5-5.5); Sodium, Blood 138 mmol/L (136-145); Thyroid Stimulating Hormone 11.400 uIU/mL (0.360-4.800); Total Protein, Blood 6.0 g/dL (6.4-8.2); Triglycerides 127 mg/dL (30-160); Very Low Density Lipoprot Chol 25 mg/dL (6-32)
--- NOTE | 2025-06-29 06:03 | NUR ---
SHIFT SUMMARY: PT ARRIVED TO PCU 15 VIA GURNEY FROM THE ED. PT ARRIVES A&OX4. FOLLOWS COMMANDS AND IS COOPERATIVE WITH CARE. PT ASSISTED WITH GETTING CLEANED UP AND WAS OFFERED A SHOWER LATER TODAY ONCE HIS RESPIRATORY STATUS WAS MORE STABLE. PT AGREEABLE TO PLAN. DENIES ANY COMPLIANTS. WAS PROVIDED WITH A SANDWICH. BLOOD PRESSURE TIGHT, PROVIDER NOTIFIED AND PT WAS MEDICATED PER PROVIER ORDERS.PT IS NOW RESTING COMFORTABLE IN BED WITH NO NEEDS OR COMPLAINTS. CALL LIGHT IN REACH, BED ALARM ON.
[2025-06-29] MEDS ORDERED: Ipratropium/Albuterol SulF 2.5-0.5MG/3 ML Amp INH SCH (06:50)
[2025-06-29] MEDS ORDERED: HydrALAZINE HCl 20 MG / ML 1ML Vial IV PRN (07:10)
[2025-06-29] MEDS ORDERED: Mag Sulfate 1 GM/D5% 100ML 100 ML IV STA (07:10)
[2025-06-29 07:46] VITALS: BP 189/128
[2025-06-29] MEDS ORDERED: Enoxaparin 40 MG/0.4 ML SYR SC SCH (09:00)
--- NOTE | 2025-06-29 09:23 | NUR ---
AM NOTE PT ALERT, ORIENTED X4; PLEASANT, COOPERATIVE WITH CARE. PT RESTING IN BED, UP WITH 1 PERSON ASSIST IN ROOM, REPOSITION SELF IN BED. PT DENIES PAIN, CHEST PAIN/PRESSURE, SOB, NAUSEA, DIZZINESS AND NUMB/TINGLING. SPO2 >90% ON RA, BREATHING EVEN AND UNLABORED; COARSE CRACKLES NOTED T/O, EXP WHEEZES LOWER LOBES. TELE SINUS 80-90'S, BP ELEVATED, MEDICATED WITH PRN HYDRALAZINE. ABD SOFT, NONTENDER, +BT. EDEMA NOTED TO BLE AND BILATERAL HANDS; RED DISCOLOATION NOTED WELL. RED TO COCCYX, MEPILEX IN PLACE.
[2025-06-29 12:38] VITALS: BP 151/104
[2025-06-29 16:35] VITALS: BP 172/97
--- NOTE | 2025-06-29 18:08 | NUR ---
SHIFT SUMMARY BP CONTINUES TO BE ELEVATED BUT TRENDING DOWN T/O SHIFT; MEDICATED PER ORDERS. OTHER VSS. PT RESTING IN BED MAJORITY OF SHIFT, WAKES EASILY. ECHO COMPLETED DURING SHIFT. NO OTHER ACUTE CHANGES NOTED. CALL LIGHT WITHIN REACH.
[2025-06-29] MEDS ORDERED: Albuterol HFA200 ACT/6.7 GM INH INH PRN (18:50)
[2025-06-29 19:38] VITALS: BP 168/103
[2025-06-29 20:48] VITALS: BP 161/84
--- NOTE | 2025-06-29 21:57 | NUR ---
ASSUMED CARE OF PATIENT AT 1900. PATIENT A/O X 4, ANSWERS QUESTIONS APPROPRIATELY AND IS ABLE TO MAKE NEEDS KNOWN. PT IS HARD OF HEARING. SINUS RHYTHM 90s, BP ELEVATED, PRNs NOT INDICATED AT THIS TIME. DENIES CHEST PAIN OR PRESSURE. PT REPORTS 2/10 HEADACHE, DECLINES TYLENOL. SpO2 >92% ON ROOM AIR, BREATHING EVEN AND UNLABORED. PT USES URINAL IN BED. 1 PERSON ASSIST TO BATHROOM. BLE REDNESS WITH 3+ PITTING EDEMA. BILATERAL HAND REDNESS WITH NONPITTING EDEMA. MEPILEX ON COCCYX C/D/I. PATIENT RESTING COMFORTABLY IN ROOM. BED LOCKED IN LOWEST POSITION, CALL LIGHT WITHIN REACH.
[2025-06-30] VITALS (8 sets, daily range): BP systolic 123–196; BP diastolic 75–127
[2025-06-30 04:01] LABS: BASOPHILS ABSOLUTE AUTO 0.06 K/mm3 (0.00-0.23); BASOPHILS PERCENT AUTO 0 % (0-2); EOSINOPHILS ABSOLUTE AUTO 0.22 K/mm3 (0.00-0.68); EOSINOPHILS PERCENT AUTO 1 % (0-6); Hematocrit 49.1 % (37.0-53.0); Hemoglobin 15.9 g/dL (13.5-17.5); IMMATURE GRAN ABSOLUTE AUTO 0.05 K/mm3 (0.00-0.10); IMMATURE GRAN PERCENT AUTO 0 % (0-1); LYMPHOCYTES ABSOLUTE AUTO 0.91 K/mm3 (0.84-5.20); LYMPHOCYTES PERCENT AUTO 6 % (21-46); MONOCYTES ABSOLUTE AUTO 1.46 K/mm3 (0.16-1.47); MONOCYTES PERCENT AUTO 9 % (4-13); Mean Corpuscular HGB Conc 32.4 g/dL (31.5-36.5); Mean Corpuscular Volume 92 fL (80-100); NEUTROPHILS ABSOLUTE AUTO 12.99 K/mm3 (1.96-9.15); NEUTROPHILS PERCENT AUTO 83 % (41-73); NRBC ABSOLUTE 0.00 K/mm3 (0.00-0.02); NRBC Auto 0.0 /100 WBC (0.0-0.2); Platelet Count 263 K/mm3 (150-400); RDW Coefficient Variation 14.0 % (11.7-14.2); RDW Standard Deviation 47.0 fL (35.1-46.3)
[2025-06-30 04:19] LABS: Alanine Aminotransfer (ALT/SGP 84.0 U/L (12-78); Albumin, Blood 3.0 g/dL (3.4-5.0); Albumin/Globulin Ratio 0.9 (0.8-1.8); Anion Gap 10.0 mmol/L (3-11); Aspartate Aminotrans (AST/SGOT 67.0 U/L (12-37); Bilirubin, Total 0.8 mg/dL (0.1-1.0); Blood Urea Nitrogen 45.0 mg/dL (8-24); CO2, Blood 28.0 mmol/L (21-32); Calcium, Blood 8.7 mg/dL (8.5-10.1); Chloride, Blood 101.0 mmol/L (98-108); Creatinine, Blood 2.0 mg/dL (0.60-1.20); Globulin, Blood 3.5 g/dL (2.2-4.0); Glucose, Blood 144.0 mg/dL (70-99); Magnesium, Blood 2.1 mg/dL (1.6-2.4); Potassium, Blood 4.0 mmol/L (3.5-5.5); Sodium, Blood 135.0 mmol/L (136-145); Total Protein, Blood 6.5 g/dL (6.4-8.2)
--- NOTE | 2025-06-30 06:13 | NUR ---
SHIFT SUMMARY SEE PREVIOUS NOTES. PATIENT REMAINS A/O X 4, USES CALL LIGHT APPROPRIATELY AND IS COOPERATIVE WITH CARE. SINUS RHYTHM/SINUS TACH 90-110s. BP STARTED TRENDING UP, TREATED PER EMAR. ALL OTHER VSS. NO ACUTE EVENTS THIS SHIFT. PATIENT RESTING COMFORTABLY IN ROOM. BED LOCKED IN LOWEST POSITION, CALL LIGHT WITHIN REACH
[2025-06-30] MEDS ORDERED: Ipratropium/Albuterol SulF 2.5-0.5MG/3 ML Amp INH PRN (10:00)
--- NOTE | 2025-06-30 17:38 | NUR ---
SHIFT SUMMARY PT ALERT, ORIENTED X4; CALM AND COOPERATIVE WITH CARE. PT RESTING IN BED, UP WITH 1 PERSON ASSIST. PT REPORTS HEADACHE THIS AFTERNOON, MEDICATED PER EMAR. DENIES CHEST PAIN/PRESSURE, SOB, NAUSEA, DIZZINESS AND NUMB/TINGLING. TELE SINUS, BP ELEVATED THIS AM, TRENDING DOWN. EDEMA NOTED TO BLE AND HANDS. SPO2 >90% ON RA, BREATHING EVEN AND UNLABORED. ABD SOFT, NONTENDER +BT NOTED. OTHER VSS. CALL LIGHT WITHIN REACH.
--- NOTE | 2025-06-30 20:30 | NUR ---
ASSUMED CARE OF PATIENT AT 1900. PATIENT A/O X 4, ANSWERS QUESTIONS APPROPRIATELY AND IS ABLE TO MAKE NEEDS KNOWN. PT IS HARD OF HEARING. SINUS RHYTHM 90s, BP ELEVATED BUT TRENDING DOWN. DENIES CHEST PAIN OR PRESSURE. PT REPORTS. SpO2 > 92% ON ROOM AIR, NO S/Sx OF RESPIRATORY DISTRESS. 1 PERSON ASSIST TO BATHROOM. BLE REDNESS WITH 3+ PITTING EDEMA. BILATERAL HAND REDNESS WITH NONPITTING EDEMA, MEPILEX ON COCCYX C/D/I. PATIENT RESTING COMFORTABLY IN ROOM. BED LOCKED IN LOWEST POSITION, CALL LIGHT WITHIN REACH.
[2025-07-01] VITALS (7 sets, daily range): BP systolic 121–148; BP diastolic 74–114
[2025-07-01 04:58] LABS: BASOPHILS ABSOLUTE AUTO 0.08 K/mm3 (0.00-0.23); BASOPHILS PERCENT AUTO 0 % (0-2); EOSINOPHILS ABSOLUTE AUTO 0.20 K/mm3 (0.00-0.68); EOSINOPHILS PERCENT AUTO 1 % (0-6); Hematocrit 51.5 % (37.0-53.0); Hemoglobin 16.4 g/dL (13.5-17.5); IMMATURE GRAN ABSOLUTE AUTO 0.08 K/mm3 (0.00-0.10); IMMATURE GRAN PERCENT AUTO 0 % (0-1); LYMPHOCYTES ABSOLUTE AUTO 1.24 K/mm3 (0.84-5.20); LYMPHOCYTES PERCENT AUTO 6 % (21-46); MONOCYTES ABSOLUTE AUTO 1.68 K/mm3 (0.16-1.47); MONOCYTES PERCENT AUTO 9 % (4-13); Mean Corpuscular HGB Conc 31.8 g/dL (31.5-36.5); Mean Corpuscular Volume 94 fL (80-100); NEUTROPHILS ABSOLUTE AUTO 16.02 K/mm3 (1.96-9.15); NEUTROPHILS PERCENT AUTO 83 % (41-73); NRBC ABSOLUTE 0.00 K/mm3 (0.00-0.02); NRBC Auto 0.0 /100 WBC (0.0-0.2); Platelet Count 282 K/mm3 (150-400); RDW Coefficient Variation 13.7 % (11.7-14.2); RDW Standard Deviation 47.4 fL (35.1-46.3)
[2025-07-01 05:24] LABS: Anion Gap 8.0 mmol/L (3-11); Blood Urea Nitrogen 47.0 mg/dL (8-24); CO2, Blood 27.0 mmol/L (21-32); Calcium, Blood 8.9 mg/dL (8.5-10.1); Chloride, Blood 101.0 mmol/L (98-108); Creatinine, Blood 2.08 mg/dL (0.60-1.20); Glucose, Blood 102.0 mg/dL (70-99); Magnesium, Blood 2.3 mg/dL (1.6-2.4); Potassium, Blood 5.1 mmol/L (3.5-5.5); Sodium, Blood 131.0 mmol/L (136-145)
--- NOTE | 2025-07-01 06:22 | NUR ---
SHIFT SUMMARY SEE PREVIOUS NOTES. PATIENT A/O X 4, USES CALL LIGHT APPROPRIATELY AND IS COOPERATIVE WITH CARE. PATIENT VSS STABLE. NO ACUTE EVENTS THIS SHIFT. PATIENT RESTING COMFORTABLY IN ROOM. BED LOCKED IN LOWEST POSITION, CALL LIGHT WITHIN REACH.
[2025-07-01] MEDS ORDERED: Polyethylene Glycol 3350 17 gm PO PRN (08:55)
--- NOTE | 2025-07-01 13:40 | NUR ---
update this rn called md leonard due to patient wanting to leave. md leonard in the room and discussed risks of leaving ama. patient agreed to stay until thursday. this rn informed primary rn
--- NOTE | 2025-07-01 19:23 | NUR ---
SHIFT SUMMARY: A/O X4, ANXIOUS AND IRRITABLE BUT REMAINED PLEASANT AND COOPERATIVE WITH CARE, PT MADE STATEMENTS OF DESIRE TO DISCHARGE AMA, PT PROVIDED EDUCATION, MD QUIROZ CAME TO BEDSIDE, PT AGREEABLE TO CONTINUE HOSPITAL STAY, USES CALL LIGHT APPROPRIATELY. NSR, HR 60-70 S, CHF, EF: 30-35%, PT DENIES CHEST PAIN OR PRESSURE, BILATERAL HANDS ARE EDETAMOUS AND RED, PT REPORTS IMPROVEMENT IN BLE EDEMA. SPO2 >92% ON RA, PT MAKES A GROWLING/HUM NOISE WHEN BREATHING AND REPORTS THIS SOUND IS NOT NEW AND HE DOES THIS AT BASELINE, RECEIVED BREATHING TX AFTER ENDORSING FEELING OF LUNGS BEING TIGHT, PT VERBALIZED BREATHING TX EFFECTIVE AND DENIES SOB. PT REFUSED LOVENOX INJECTION, EDUCATED ON INDICATION, RISK, AND BENEFIT OF MEDICATION, SCD S APPLIED, THIS RN OFFERED THE PT TO WALK IN THE HALLS APPROX EVERY 4 HOURS, PT DECLINED, PT PROVIDED EDUCATION ON BENEFITS OF AMBULATION. PT IS VERY HUNGRY, TOLERATES ORAL INTAKE WELL, 2,000 ML FLUID RESTRICTION, PT IS RESISTENT TO FLUID RESTRICTION, EDUCATION PROVIDED, PT USES BEDSIDE URINAL, NO BM THIS SHIFT, BOWEL CARE ORDERED PRN, PT DECLINED. BLANCHABLE REDNESS TO COCCYX, PROTECTIVE MEPILEX APPLIED. ORIENTED TO CALL DON T FALL, PT EXPRESSES NO FURTHER NEEDS AT THIS TIME.
[2025-07-02] VITALS (8 sets, daily range): BP systolic 132–160; BP diastolic 10–108
[2025-07-02 04:58] LABS: BASOPHILS ABSOLUTE AUTO 0.07 K/mm3 (0.00-0.23); BASOPHILS PERCENT AUTO 1 % (0-2); EOSINOPHILS ABSOLUTE AUTO 0.38 K/mm3 (0.00-0.68); EOSINOPHILS PERCENT AUTO 3 % (0-6); Hematocrit 47.9 % (37.0-53.0); Hemoglobin 15.2 g/dL (13.5-17.5); IMMATURE GRAN ABSOLUTE AUTO 0.06 K/mm3 (0.00-0.10); IMMATURE GRAN PERCENT AUTO 0 % (0-1); LYMPHOCYTES ABSOLUTE AUTO 1.36 K/mm3 (0.84-5.20); LYMPHOCYTES PERCENT AUTO 10 % (21-46); MONOCYTES ABSOLUTE AUTO 1.51 K/mm3 (0.16-1.47); MONOCYTES PERCENT AUTO 11 % (4-13); Mean Corpuscular HGB Conc 31.7 g/dL (31.5-36.5); Mean Corpuscular Volume 94 fL (80-100); NEUTROPHILS ABSOLUTE AUTO 10.10 K/mm3 (1.96-9.15); NEUTROPHILS PERCENT AUTO 75 % (41-73); NRBC ABSOLUTE 0.00 K/mm3 (0.00-0.02); NRBC Auto 0.0 /100 WBC (0.0-0.2); Platelet Count 285 K/mm3 (150-400); RDW Coefficient Variation 13.8 % (11.7-14.2); RDW Standard Deviation 48.1 fL (35.1-46.3)
[2025-07-02 05:24] LABS: Anion Gap 9.0 mmol/L (3-11); Blood Urea Nitrogen 45.0 mg/dL (8-24); CO2, Blood 27.0 mmol/L (21-32); Calcium, Blood 8.7 mg/dL (8.5-10.1); Chloride, Blood 101.0 mmol/L (98-108); Creatinine, Blood 2.22 mg/dL (0.60-1.20); Glucose, Blood 103.0 mg/dL (70-99); Magnesium, Blood 2.4 mg/dL (1.6-2.4); Potassium, Blood 4.6 mmol/L (3.5-5.5); Sodium, Blood 132.0 mmol/L (136-145)
--- NOTE | 2025-07-02 06:07 | NUR ---
NO ACUTE EVENTS OVERNIGHT. PT TOOK A SHOWER. USED URINAL APPROPRIATELY. CALLED APPROPRIATELY. BED LOCKED IN LOWEST POSITION. CALL LIGHT WITHIN REACH.
--- NOTE | 2025-07-02 17:07 | NUR ---
PATIENT IS ALERT AND ORIENTED AND COOPERATIVE WITH CARE. NO C/O SOB. [employer] [place] [employer] [place]. TELE SR 70 BPM. BM TODAY. SBA TO THE BATHROOM. CALLS APPROPRIATELY. USES THE URINAL INDPENDENTLY. 2+ EDEMA IN BLE. REDNESS OON COCCYX, COVERED WITH A MEPILEX. ON RA. WILL CONTINUE TO MONITOR
[2025-07-03 04:25] LABS: BASOPHILS ABSOLUTE AUTO 0.05 K/mm3 (0.00-0.23); BASOPHILS PERCENT AUTO 0 % (0-2); EOSINOPHILS ABSOLUTE AUTO 0.29 K/mm3 (0.00-0.68); EOSINOPHILS PERCENT AUTO 2 % (0-6); Hematocrit 46.3 % (37.0-53.0); Hemoglobin 14.7 g/dL (13.5-17.5); IMMATURE GRAN ABSOLUTE AUTO 0.07 K/mm3 (0.00-0.10); IMMATURE GRAN PERCENT AUTO 1 % (0-1); LYMPHOCYTES ABSOLUTE AUTO 1.15 K/mm3 (0.84-5.20); LYMPHOCYTES PERCENT AUTO 9 % (21-46); MONOCYTES ABSOLUTE AUTO 1.47 K/mm3 (0.16-1.47); MONOCYTES PERCENT AUTO 11 % (4-13); Mean Corpuscular HGB Conc 31.7 g/dL (31.5-36.5); Mean Corpuscular Volume 94 fL (80-100); NEUTROPHILS ABSOLUTE AUTO 10.17 K/mm3 (1.96-9.15); NEUTROPHILS PERCENT AUTO 77 % (41-73); NRBC ABSOLUTE 0.00 K/mm3 (0.00-0.02); NRBC Auto 0.0 /100 WBC (0.0-0.2); Platelet Count 311 K/mm3 (150-400); RDW Coefficient Variation 13.9 % (11.7-14.2); RDW Standard Deviation 47.8 fL (35.1-46.3)
[2025-07-03 04:47] LABS: Alanine Aminotransfer (ALT/SGP 65.0 U/L (12-78); Albumin, Blood 3.0 g/dL (3.4-5.0); Albumin/Globulin Ratio 0.8 (0.8-1.8); Anion Gap 9.0 mmol/L (3-11); Aspartate Aminotrans (AST/SGOT 40.0 U/L (12-37); Bilirubin, Total 0.4 mg/dL (0.1-1.0); Blood Urea Nitrogen 49.0 mg/dL (8-24); CO2, Blood 25.0 mmol/L (21-32); Calcium, Blood 8.7 mg/dL (8.5-10.1); Chloride, Blood 104.0 mmol/L (98-108); Creatinine, Blood 1.87 mg/dL (0.60-1.20); Globulin, Blood 3.9 g/dL (2.2-4.0); Glucose, Blood 102.0 mg/dL (70-99); Potassium, Blood 4.7 mmol/L (3.5-5.5); Sodium, Blood 133.0 mmol/L (136-145); Total Protein, Blood 6.9 g/dL (6.4-8.2)
--- NOTE | 2025-07-03 05:42 | NUR ---
ASSUMPTION OF CARE/SHIFT SUMMARY ASSUMED CARE OF PT AT APPROXIMATELY 1900. PT RESTING COMFORTABLY IN BED. NO C/O SOB. NO C/O CHEST PAIN OR PRESSURE. PT SELF D/C HIS IV. MULTIPLE REFUSALS TO LET A NEW ONE BE PLACED, STATING IT IS REALLY HARD TO GET ONE AND I AM JUST GOING HOME IN A FEW HOURS ANYWAY . EAGER TO DISCHARGE. PT USES URINAL INDEPENDENTLY. LBM 07/02. PT AOX4. VSS. ABLE TO MAKE ALL NEEDS KNOWN. CALL LIGHT WITHIN REACH AND PT ABLE TO CALL FOR ASSISTANCE WHEN NEEDED.
[2025-07-03 08:55] VITALS: BP 159/109
--- NOTE | 2025-07-03 11:16 | NUR ---
Upon receiving a referral for spiritual care, I visited the patient. He is [place] but is able to communicate his medical issues, his nervousness about going to a SNF upon D/C, and noninterest in spiritual care. I allow patient to return to his rest, but will remain available.
[2025-07-03] MEDS ORDERED: FURO40 PO (11:42)
[2025-07-03] MEDS ORDERED: OLMESARTAN MEDO40 MG PO (11:42)
[2025-07-03] MEDS ORDERED: JARDIANCE10 MG PO (11:42)
[2025-07-03] MEDS ORDERED: AMLODIPINE BESY10 MG PO (11:42)
[2025-07-03] MEDS ORDERED: ALDACTONE25 MG PO (11:43)
[2025-07-03] MEDS ORDERED: METO50ER PO (11:43)
[2025-07-03 12:03] VITALS: BP 156/99
--- NOTE | 2025-07-03 12:37 | NUR ---
DISCHARGE: PT HAS BEEN CLEARED FOR DISCHARGE W/PLANS TO FOLLOW UP WITH [facility]. PEER MENTOR F/[facility] TO BEDSIDE, PROVIDED PT W/NECESSARY PAPERWORK, PT STATES HE WILL TURN IT IN TO [facility] IN PERSON. PT DRESSES SELF. DC PAPERWORK PROVIDED, PT V/U AND INTENT TO CONSTRUCTION ACCOUNTANT MEDICATIONS F/PHARMACY THEN GET TO [facility]. PT ESCORTED FROM UNIT VIA W/C TO WAITING TAXI.
== END 2025-07-03 12:31 | disposition home or self-care (01) | DRG 291 ==
LOC: ER 21:15 → ERHOLD 06-29 01:12 → PCU 06-29 01:12
PROVIDERS: Student in an Organized Health Care Education/Training Program; ADMIT Student in an Organized Health Care Education/Training Program
DX: I13.0 Hypertensive heart and chronic kidney disease with heart failure and stage 1 through stage 4 chronic kidney disease, or unspecified chronic kidney disease (principal); I50.41 Acute combined systolic (congestive) and diastolic (congestive) heart failure; N17.9 Acute kidney failure, unspecified; R65.10 Systemic inflammatory response syndrome (SIRS) of non-infectious origin without acute organ dysfunction; E87.1 Hypo-osmolality and hyponatremia; Z59.02 Unsheltered homelessness; N18.32 Chronic kidney disease, stage 3b; L89.151 Pressure ulcer of sacral region, stage 1; K21.9 Gastro-esophageal reflux disease without esophagitis; I16.0 Hypertensive urgency; I5A Non-ischemic myocardial injury (non-traumatic); R73.03 Prediabetes; F12.90 Cannabis use, unspecified, uncomplicated; R74.01 Elevation of levels of liver transaminase levels; F17.210 Nicotine dependence, cigarettes, uncomplicated; E83.51 Hypocalcemia; I27.20 Pulmonary hypertension, unspecified; J43.9 Emphysema, unspecified; I87.2 Venous insufficiency (chronic) (peripheral); F15.10 Other stimulant abuse, uncomplicated; Z91.148 Patient's other noncompliance with medication regimen for other reason
CPT/HCPCS: 36415; 71046; 80048; 80053; 80061; 83036; 83735; 83880; 84439; 84443; 84484; 85025; 93005; 93010; 93306; 94640; 94664; 94762; 99285-25; A9270; J0360; J1650; J1938; J3475

== ENCOUNTER 2025-07-05 20:02 | Emergency (ER) | payer OTHER ==
[~2025-07-05] VITALS: Ht 182.9 cm; Wt 67.1 kg
[~2025-07-05 20:02] MED LIST changes: +ALDACTONE25 MG PO; +AMLODIPINE BESY10 MG PO; +FURO40 PO; +JARDIANCE10 MG PO; +METO50ER PO; +OLMESARTAN MEDO40 MG PO
[2025-07-05 20:40] LABS: BASOPHILS ABSOLUTE AUTO 0.08 K/mm3 (0.00-0.23); BASOPHILS PERCENT AUTO 1 % (0-2); EOSINOPHILS ABSOLUTE AUTO 0.34 K/mm3 (0.00-0.68); EOSINOPHILS PERCENT AUTO 3 % (0-6); Hematocrit 46.1 % (37.0-53.0); Hemoglobin 14.3 g/dL (13.5-17.5); IMMATURE GRAN ABSOLUTE AUTO 0.09 K/mm3 (0.00-0.10); IMMATURE GRAN PERCENT AUTO 1 % (0-1); LYMPHOCYTES ABSOLUTE AUTO 1.02 K/mm3 (0.84-5.20); LYMPHOCYTES PERCENT AUTO 8 % (21-46); MONOCYTES ABSOLUTE AUTO 1.69 K/mm3 (0.16-1.47); MONOCYTES PERCENT AUTO 13 % (4-13); Mean Corpuscular HGB Conc 31.0 g/dL (31.5-36.5); Mean Corpuscular Volume 96 fL (80-100); NEUTROPHILS ABSOLUTE AUTO 9.39 K/mm3 (1.96-9.15); NEUTROPHILS PERCENT AUTO 75 % (41-73); NRBC ABSOLUTE 0.00 K/mm3 (0.00-0.02); NRBC Auto 0.0 /100 WBC (0.0-0.2); Platelet Count 337 K/mm3 (150-400); RDW Coefficient Variation 13.8 % (11.7-14.2); RDW Standard Deviation 49.1 fL (35.1-46.3)
[2025-07-05 20:57] LABS: Alanine Aminotransfer (ALT/SGP 62 U/L (12-78); Albumin, Blood 3.2 g/dL (3.4-5.0); Albumin/Globulin Ratio 0.8 (0.8-1.8); Anion Gap 10 mmol/L (3-11); Aspartate Aminotrans (AST/SGOT 48 U/L (12-37); Bilirubin, Total 0.4 mg/dL (0.1-1.0); Blood Urea Nitrogen 47 mg/dL (8-24); CO2, Blood 25 mmol/L (21-32); Calcium, Blood 8.6 mg/dL (8.5-10.1); Chloride, Blood 106 mmol/L (98-108); Creatinine, Blood 1.65 mg/dL (0.60-1.20); Ethanol (Alcohol), Blood, Med <3 mg/dL; Globulin, Blood 4.0 g/dL (2.2-4.0); Glucose, Blood 93 mg/dL (70-99); Magnesium, Blood 2.3 mg/dL (1.6-2.4); Potassium, Blood 5.2 mmol/L (3.5-5.5); Sodium, Blood 136 mmol/L (136-145); Total Protein, Blood 7.2 g/dL (6.4-8.2)
[2025-07-05 21:31] VITALS: BP 168/107
== END 2025-07-05 21:46 | disposition home or self-care (01) ==
LOC: ER 20:02
PROVIDERS: Emergency Medicine
DX: F15.90 Other stimulant use, unspecified, uncomplicated (principal); F10.90 Alcohol use, unspecified, uncomplicated; N28.9 Disorder of kidney and ureter, unspecified; J44.9 Chronic obstructive pulmonary disease, unspecified; F17.210 Nicotine dependence, cigarettes, uncomplicated; Z79.84 Long term (current) use of oral hypoglycemic drugs; Z79.899 Other long term (current) drug therapy
CPT/HCPCS: 80053; 80320; 83735; 85025; 93005; 93010; 99284-25